=== PATIENT | female | born 1965 | race Two or more races ===

== ENCOUNTER 2020-10-10 11:02 | Emergency (ER) | payer OTHER, SELFPAY ==
[2020-10-10 11:29] VITALS: BP 173/98; PULSE 81; RESP 16; TEMP 36.6; O2SAT 98; BMI 31.1
--- NOTE | 2020-10-10 12:49 | XR_ITS ---
EXAMINATION: XR SHOULDER, LEFT CLINICAL INFORMATION: Pain. Status post injury COMPARISON: None TECHNIQUE: AP external rotation, Grashey, scapular Y, and axillary views of the left shoulder. FINDINGS: The bones and soft tissues are normal. No fracture. Glenohumeral and acromioclavicular alignment is anatomic with normal joint space. No abnormal soft tissue calcifications. XR/XR shoulder LT min 2V IMPRESSION: Unremarkable left shoulder
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
[2020-10-10] MEDS: Acetaminophen 325 MG TABLET 975 MG PO (13:33)
[2020-10-10] MEDS: Lidocaine 4 % Patch ADH..PATCH 1 PATCH TRANSDERMA (13:34)
== END 2020-10-10 14:09 | disposition home or self-care (01) ==
PROVIDERS: Emergency Provider Internal Medicine; PCP Internal Medicine
DX: G89.11 Acute pain due to trauma (principal); M25.512 Pain in left shoulder
CPT/HCPCS: 73030; 99283

== ENCOUNTER → 2020-11-04 09:47 | Outpatient (BNVA) | payer OTHER, SELFPAY | PROVIDERS: PCP Internal Medicine; Visit Provider Physician Assistant ==

== ENCOUNTER 2021-10-10 12:39 | Outpatient (REF) | payer OTHER, SELFPAY ==
[2021-10-11 15:50] LABS: CT PCR NOT DETECTED (Not Detect.); NG PCR NOT DETECTED (Not Detect.)
== END 2021-10-10 12:40 | disposition home or self-care (01) ==
LOC: HO.LAB 12:39
PROVIDERS: PCP Internal Medicine; Visit Provider Advanced Practice Midwife
DX: Z01.419 Encounter for gynecological examination (general) (routine) without abnormal findings (principal)
CPT/HCPCS: 87491; 87591

== ENCOUNTER 2021-10-23 09:57 | Outpatient (REF) | payer OTHER, SELFPAY ==
[2021-10-23 10:24] LABS: MANUAL DIFF FLAG NO
[2021-10-23 11:17] LABS: Basophils Percent Auto 0.5 % (0-2); Eosinophils Absolute Auto 0.1 X10*3/uL (0.0-0.4); Eosinophils Percent Auto 2.1 % (0-4); Hematocrit 41.6 % (37.0-47.0); Hemoglobin 12.9 g/dl (12.0-16.0); Imm Gran Abs Auto 0.01 X10*3/uL (0.00-0.03); Imm Gran Pct Auto 0.2 % (0.0-0.4); Lymphocytes Absolute Auto 1.5 X10*3/uL (1.2-4.9); Lymphocytes Percent Auto 23.4 % (20-40); Mean Corpuscular Hemoglobin 27.2 pg (27.0-33.0); Mean Corpuscular Volume 87.8 fL (80.0-98.0); Mean Platelet Volume 9.3 fL (9.4-12.3); Monocytes Absolute Auto 0.5 X10*3/uL (0.1-1.2); Monocytes Percent Auto 7.5 % (2-11); Neutrophils Absolute Auto 4.1 x10*3/uL (2.0-8.3); Neutrophils Percent Auto 66.3 % (45-73); Platelet Count 253 X10*3/uL (160-400); Red Blood Count 4.74 X10*6/uL (4.20-5.50); Red Cell Distribution Width 13.8 % (11.0-16.0); White Blood Count 6.2 X10*3/uL (4.8-10.8)
[2021-10-23 12:09] LABS: TSH reflex Free T4 (Prenatal) 2.39 uIU/mL (0.32-4.0)
[2021-10-23 12:18] LABS: Alanine Aminotransferase 16 U/L (0-31); Albumin Level 4.1 g/dL (3.5-5.0); Alkaline Phosphatase 108 U/L (39-117); Anion Gap 11 (12-20); Aspartate Amino Transferase 20 U/L (5-31); Bilirubin Total 0.5 mg/dL (0.0-1.0); Blood Urea Nitrogen 14 mg/dL (9-16); Calcium 9.7 mg/dL (8.4-10.2); Carbon Dioxide 27 mmol/L (22-29); Chloride 107 mmol/L (96-108); Cholesterol 211 mg/dL; Estimated Glomerular Filt Rate > 60; Glucose Fasting 103 mg/dL (60-99); HDL Cholesterol 53 mg/dL; LDL Cholesterol Calculated 139 mg/dl; Potassium 4.7 mmol/L (3.3-5.1); Sodium 140 mmol/L (135-145); Total Protein 7.6 g/dL (6.5-8.0); Triglycerides 98 mg/dL
[2021-10-28 13:11] LABS: Vitamin D 25-OH, D2 <4 ng/mL; Vitamin D 25-OH, D3 19 ng/mL; Vitamin D 25-OH, Total 19 ng/mL (30-100)
== END 2021-10-23 09:58 | disposition home or self-care (01) ==
LOC: HO.LAB 09:57
PROVIDERS: PCP Internal Medicine; Visit Provider Internal Medicine
DX: E66.9 Obesity, unspecified (principal); Z68.33 Body mass index [BMI] 33.0-33.9, adult; E55.9 Vitamin D deficiency, unspecified; E78.5 Hyperlipidemia, unspecified; D64.9 Anemia, unspecified
CPT/HCPCS: 36415; 80053; 80061; 82306; 85025

== ENCOUNTER 2022-04-27 10:57 | Emergency (ER) | payer OTHER, SELFPAY ==
[2022-04-27 12:00] VITALS: BP 124/79; PULSE 76; RESP 16; TEMP 36.2; O2SAT 98; BMI 33.0
--- NOTE | 2022-04-27 12:21 | ED.FEMALEGU ---
HPI - Female Genitourinary General Chief complaint: Urogenital-Female Stated complaint: abd pain Time Seen by Provider: 04/27/22 12:13 Source: patient Mode of arrival: ambulatory Limitations: no limitations History of Present Illness HPI Narrative: 56-year-old female with history HLD depression insomnia, who presents to the ER for evaluation of dysuria and hematuria yesterday. She reports suprapubic pain as well. She has no fever or chills. She denies any nausea, vomiting, diarrhea, back pain. She has never had a urinary tract infection before and does not know what when feels like. She denies any vaginal discharge. MD elicited complaint: dysuria Onset (ago): day(s) Location of symptoms: external genitalia and suprapubic Severity: moderate Female Urogenital Radiation: Suprapubic Severity scale (1-10): 6 Quality of pain: burning Consistency: intermittent Vaginal discharge: none Vaginal bleeding: none Urinary symptoms: Dysuria, Frequency and Hematuria Exacerbating factors: urination Associated symptoms: abdominal pain Treatment prior to arrival: none Sexual activity: Yes Patient : No Related Data Home Medications Medication Instructions Recorded Confirmed trazodone 50 mg tablet 50 mg PO BEDTIME 11/04/20 03/12/22 Previous Rx's Medication Instructions Recorded calcitriol 0.25 mcg capsule 0.25 mcg PO DAILY 90 days #90 caps 02/21/22 (Rocaltrol) rosuvastatin 40 mg tablet 40 mg PO DAILY 90 days #90 tabs 03/08/22 cefuroxime axetil 500 mg tablet 500 mg PO BID 7 days #14 tabs 04/27/22 phenazopyridine 100 mg tablet 100 mg PO TID PRN pain 6 doses #6 04/27/22 (Pyridium) tabs Allergies Allergy/AdvReac Type Severity Reaction Status Date / Time No Known Allergies Allergy Verified 03/12/22 16:37 [No Known Allergies*] Review of Systems Review of Systems: Constitutional: No Fever, No Chills Cardiovascular: No Chest Pain, No SOB Respiratory: No Cough, No Sputum Gastrointestinal: No Nausea, No Vomiting, No Diarrhea, + abdominal Pain Genitourinary: + Dysuria, + Urinary Frequency, + Hematuria Musculoskeletal: No joint pain, No Myalgias, No back pain Skin: No Skin Lesions, No rash Neuro: No Weakness, No Numbness, No Dizziness, No Headache Psych: + Anxiety/Panic, No Depression Heme/Lymph: No Bruising, No Lymphadenopathy Endocrine: No Polyuria, No Polydipsia PMFSH Past Medical History Medical History (Updated 04/27/22 @ 12:43 by BOUCHRA Cam[place]) Class 1 obesity with body mass index (BMI) of 33.0 to 33.9 in adult Dyslipidemia High cholesterol Hypovitaminosis D Insomnia Mild recurrent major depression Surgical History No pertinent past surgical history Family History Family History Mother Advanced dementia Essential hypertension Pure hypercholesterolemia Father Advanced dementia Social History Social History Household Members: Spouse Household Members Other:: son Housing: House Alcohol intake: never Patient Tobacco Use Status: Never used Tobacco e-Cigarette/Vaping Use: Never Used Second Hand Smoke Exposure: No Advance Directives: No Advance Directives Information Provided: Yes service: No Current occupational status: unemployed Sexual orientation: Straight/Heterosexual Gender identity: Female Cognitive needs: No Hearing needs: No Vision needs: No Physical Exam Vital Signs: Vital Signs: Last Vital Signs Temp 97.2 F 04/27/22 12:00 Pulse 76 04/27/22 12:00 Resp 16 04/27/22 12:00 BP 124/79 04/27/22 12:00 Pulse Ox 98 04/27/22 12:00 O2 Del Method 04/27/22 12:00 BMI result Body Mass Index 33.0 Appearance: Alert. Oriented X3. No acute distress. Eyes: Pupils equal, round and reactive to light. ENT: Pharynx normal. Neck: Normal inspection. Neck supple. CVS: Normal heart rate and rhythm. Pulses normal. Respiratory: No respiratory distress. Breath sounds normal. Abdomen: Soft with mild suprapubic tenderness. No rebound or guarding. Normal BS x4. No CVA tenderness. Pelvic deferred Skin: Skin warm and dry. Normal skin color. Normal skin turgor. No rashes. Extremities: No lower extremity edema. Neuro: Oriented X 3. No motor deficit. No sensory deficit. Course Course Course Narrative: 56-year-old female presenting to the ER with dysuria and hematuria that started yesterday. On arrival to the ER she is afebrile, vital signs are within normal limits. She has mild suprapubic tenderness on examination, otherwise is nontoxic appearing. No CVA tenderness. Her urine is positive for protein, blood, leukocyte esterase consistent with urinary tract infection. Will treat with Ceftin x7 days. Will also give short course of Pyridium for her symptoms. She was encourage follow-up with her primary care doctor. Encouraged increased oral intake and stay hydrated. We discussed warning signs and symptoms of ascending urinary tract infection that should prompt urgent re-evaluation. Patient expressed understanding. She is stable for discharge home. MDM - Female Genitourinary Lab Data Labs: Lab Results 04/27/22 04/27/22 Range/Units 12:17 12:17 Urine Color PINK Urine Appearance HAZY Urine pH 6.5 (5.0-8.0) Ur Specific [place] 1.020 (1.005-1.025) Urine Protein 2+ H (NEG-TRACE) MG/DL Urine Glucose (UA) NEG (NEG) MG/DL Urine Ketones NEG (NEG) MG/DL Urine Blood 3+ H (NEG) Urine Nitrite NEG (NEG) Ur Leukocyte Esterase 1+ H (NEG) Urine RBC TNTC H (0) /HPF Urine WBC 1-4 (0-4) /HPF Ur Squamous Epith Cells 1+ /LPF Urine Bacteria TRACE /LPF Urine Test NEGATIVE (NEGATIVE) Discharge Plan Discharge Clinical Impression: Acute UTI Patient Disposition: Home, Self-Care Instructions: Urinary Tract Infection in Women (ED) Additional Instructions: Your urine test today showed evidence of infection. Take the prescribed antibiotic as directed, complete the entire course. Drink plenty of water. Take prescribed medication called Pyridium as needed for bladder pain and spasm. This can cause your urine to turn an orange color, this is a normal side effect. If you have new or worsening symptoms despite treatment, call 911 or come back to the ER for further evaluation. Prescriptions: New cefuroxime axetil 500 mg tablet 500 mg PO BID 7 Days Qty: 14 0RF phenazopyridine [Pyridium] 100 mg tablet 100 mg PO TID PRN (Reason: pain) Qty: 6 0RF No Action calcitriol [Rocaltrol] 0.25 mcg capsule 0.25 mcg PO DAILY 90 Days Qty: 90 1RF rosuvastatin 40 mg tablet 40 mg PO DAILY 90 Days Qty: 90 1RF trazodone 50 mg tablet 50 mg PO BEDTIME Referrals: Emilia Mancini MD [Primary Care Provider] - Print Language: Frisian
[2022-04-27 12:27] LABS: Appearance Urine HAZY; Glucose Urine UA NEG (NEG); Leukocyte Esterase Urine 1+ (NEG); Nitrite Urine NEG (NEG); PH 6.5 (5.0-8.0); UACC Culture Trigger YES; Urine Blood 3+ (NEG); Urine Ketones NEG (NEG); Urine Protein 2+ MG/DL (NEG-TRACE)
[2022-04-27 12:28] LABS: Color Urine PINK; UPreg QC Valid YES; Urine Pregnancy NEGATIVE (NEGATIVE)
[2022-04-27 12:36] LABS: RBC Urine TNTC /HPF (0); Squamous Epithelial Cell Urine 1+ /LPF
[2022-04-27 12:38] LABS: Bacteria Urine TRACE /LPF
== END 2022-04-27 13:11 | disposition home or self-care (01) ==
PROVIDERS: Emergency Provider Student in an Organized Health Care Education/Training Program; PCP Internal Medicine
DX: N39.0 Urinary tract infection, site not specified (principal); B96.4 Proteus (mirabilis) (morganii) as the cause of diseases classified elsewhere
CPT/HCPCS: 81001; 81025; 87086; 87088; 87186; 99283

== ENCOUNTER 2022-06-28 09:12 | Outpatient (REF) | payer OTHER, SELFPAY ==
[2022-06-28 11:40] LABS: Alanine Aminotransferase 16 U/L (0-31); Albumin Level 4.1 g/dL (3.5-5.0); Alkaline Phosphatase 106 U/L (39-117); Anion Gap 15 (12-20); Aspartate Amino Transferase 18 U/L (5-31); Bilirubin Total < 0.2 mg/dL (0.0-1.0); Blood Urea Nitrogen 11 mg/dL (9-16); Carbon Dioxide 25 mmol/L (22-29); Chloride 107 mmol/L (96-108); Cholesterol 205 mg/dL; Estimated Glomerular Filt Rate > 60; Glucose Fasting 112 mg/dL (60-99); HDL Cholesterol 53 mg/dL; LDL Cholesterol Calculated 130 mg/dl; Potassium 4.5 mmol/L (3.3-5.1); Sodium 142 mmol/L (135-145); Total Protein 7.7 g/dL (6.5-8.0); Triglycerides 112 mg/dL
[2022-06-28 11:54] LABS: Vitamin D 25-OH Total 18.5 ng/mL (>30)
== END 2022-06-28 09:13 | disposition home or self-care (01) ==
LOC: HO.LAB 09:12
PROVIDERS: PCP Internal Medicine; Visit Provider Internal Medicine
DX: E55.9 Vitamin D deficiency, unspecified (principal); E78.5 Hyperlipidemia, unspecified
CPT/HCPCS: 36415; 80053; 80061; 82306

== ENCOUNTER 2023-01-02 13:55 | Emergency (ER) | payer OTHER, SELFPAY ==
[2023-01-02 13:58] VITALS: BP 126/99; PULSE 92; RESP 18; TEMP 36.9; O2SAT 95; BMI 28.3
--- NOTE | 2023-01-02 14:01 | ED.BACK ---
HPI - Back Pain/Injury General Chief Complaint: Back Pain/Injury <Yani Gonzalez NP - Last Filed: 01/02/23 14:02> Stated Complaint: back pain <Yani Gonzalez NP - Last Filed: 01/02/23 14:02> Time Seen by Provider: 01/02/23 15:05 <Yani Gonzalez NP - Last Filed: 01/02/23 14:02> History of Present Illness HPI Narrative: Patient complains of right-sided back pain radiating to the right foot similar to prior sciatica episodes, there was no provoking injury, pain is worse with movement, started today She denies any muscle weakness no loss of sensation no fever no IV drugs no change to bowel or bladder no pain with urination no frequent urination no burning, no incontinence <BOUCHRA Lozano - Last Filed: 01/02/23 17:43> Related Data Home Medications: Previous Rx's Medication Instructions Recorded cholecalciferol (vitamin D3) 50 50 mcg PO DAILY 90 days #90 caps 06/18/22 mcg (2,000 unit) capsule rosuvastatin 40 mg tablet 40 mg PO DAILY 90 days #90 tabs 06/22/22 diazepam 5 mg tablet (Valium) 5 mg PO TID PRN muscle spasm #10 01/02/23 tabs ibuprofen 600 mg tablet 600 mg PO Q6H PRN pain #20 tabs 01/02/23 oxycodone 5 mg tablet 5 mg PO Q6H PRN pain #14 tabs 01/02/23 <Yani Gonzalez NP - Last Filed: 01/02/23 14:02> Allergies/Adverse Reactions: Allergies Allergy/AdvReac Type Severity Reaction Status Date / Time No Known Allergies Allergy Verified 01/02/23 14:01 [No Known Allergies*] <Yani Gonzalez NP - Last Filed: 01/02/23 14:02> [facility] Past Medical History Source: nursing notes reviewed <BOUCHRA Lozano - Last Filed: 01/02/23 17:43> Medical History: Medical History Class 1 obesity with body mass index (BMI) of 33.0 to 33.9 in adult Dyslipidemia High cholesterol Hypovitaminosis D Insomnia Mild recurrent major depression <Yani Gonzalez NP - Last Filed: 01/02/23 14:02> Surgical History: Surgical History No pertinent past surgical history <Yani Gonzalez NP - Last Filed: 01/02/23 14:02> Family History Family History: Family History Mother Advanced dementia Essential hypertension Pure hypercholesterolemia Father Advanced dementia <Yani Gonzalez NP - Last Filed: 01/02/23 14:02> Social History Social History: Social History Household Members: Spouse Household Members Other:: son Housing: House Alcohol intake: never Patient Tobacco Use Status: Never used Tobacco Smoked in Last 30 Days: No e-Cigarette/Vaping Use: Never Used Second Hand Smoke Exposure: No Use of substances other than those prescribed or required for medical reasons: No Advance Directives: No Advance Directives Information Provided: Yes service: No Current occupational status: unemployed Sexual orientation: Straight/Heterosexual Gender identity: Female Cognitive needs: No Hearing needs: No Vision needs: No <Yani Gonzalez NP - Last Filed: 01/02/23 14:02> Physical Exam Vital Signs: Vital Signs: Last Vital Signs Temp 98.5 F 01/02/23 13:58 Pulse 92 01/02/23 13:58 Resp 01/02/23 13:58 BP 126/99 H 01/02/23 13:58 Pulse Ox 95 01/02/23 13:58 O2 Del Method Room Air 01/02/23 13:58 BMI result Body Mass Index 28.3 <Yani Gonzalez NP - Last Filed: 01/02/23 14:02> Vital Signs: Last Vital Signs Temp 98.5 F 01/02/23 13:58 Pulse 92 01/02/23 13:58 Resp 18 01/02/23 13:58 BP 126/99 H 01/02/23 13:58 Pulse Ox 95 01/02/23 13:58 O2 Del Method Room Air 01/02/23 13:58 BMI result Body Mass Index 28.3 <BOUCHRA Lozano - Last Filed: 01/02/23 17:43> General appearance is no acute distress The head is normocephalic atraumatic Neck is supple Respiratory no distress Chest wall nontender The abdomen is soft and nontender no rebound no guarding The back had right-sided lower lumbar tenderness and muscle spasm, [place] spinal soft tissue area There is no focal bony tenderness, skin of the back is normal there is no CVA tenderness and pain is easily reproduced with movement Extremities full range of motion x4 Neuro no focal motor sensory deficits <BOUCHRA Lozano - Last Filed: 01/02/23 17:43> Course Course Course Narrative: This is a rapid medical exam. Deferred additional HPI, ROS, PE to primary problem. 57 yo female with history of HLD, chronic back pain here with worsening back pain today at 11am with radiation to the abdomen. WIll obtain labs, UA. VSS <Yani Gonzalez NP - Last Filed: 01/02/23 14:02> This is a rapid medical exam. Deferred additional HPI, ROS, PE to primary problem. 57 yo female with history of HLD, chronic back pain here with worsening back pain today at 11am with radiation to the abdomen. WIll obtain labs, UA. Labs were ordered from triage, CBC and chemistry were without acute findings Urinalysis did show 11-20 squamous epithelial cells and 6-10 white cells with 2+ bacteria, but rechecking with patient this contaminated specimen is negative as patient does not have any symptoms of urinary tract infection and pain in the back is reproducible musculoskeletal back pain After analgesics patient felt much better was able to ambulate and felt pain was very improved and went home VSS <BOUCHRA Lozano - Last Filed: 01/02/23 17:43> Medications Administered Discontinued Medications Generic Name Dose Route Start Last Admin Trade Name Freq PRN Reason Stop Dose Admin Diazepam 5 mg 01/02/23 15:37 01/02/23 16:05 Diazepam 2 Mg Tablet PO 01/02/23 15:38 5 mg ONCE ONE Administration Ketorolac Tromethamine 30 mg 01/02/23 15:37 01/02/23 16:06 Ketorolac Tromethamine 30 Mg/Ml Vial IM 01/02/23 15:38 30 mg ONCE ONE Administration Oxycodone HCl 10 mg 01/02/23 15:37 01/02/23 16:05 Oxycodone Hcl Immed Release 5 Mg Tablet PO 01/02/23 15:38 10 mg ONCE ONE Administration <Yani Gonzalez NP - Last Filed: 01/02/23 14:02> Medications Administered Discontinued Medications Generic Name Dose Route Start Last Admin Trade Name Zeke PRN Reason Stop Dose Admin Diazepam 5 mg 01/02/23 15:37 01/02/23 16:05 Diazepam 2 Mg Tablet PO 01/02/23 15:38 5 mg ONCE ONE Administration Ketorolac Tromethamine 30 mg 01/02/23 15:37 01/02/23 16:06 Ketorolac Tromethamine 30 Mg/Ml Vial IM 01/02/23 15:38 30 mg ONCE ONE Administration Oxycodone HCl 10 mg 01/02/23 15:37 01/02/23 16:05 Oxycodone Hcl Immed Release 5 Mg Tablet PO 01/02/23 15:38 10 mg ONCE ONE Administration <BOUCHRA Lozano - Last Filed: 01/02/23 17:43> Medical Decision Making Lab Data Result Diagrams: 01/02/23 14:32 01/02/23 14:32 <Yani Gonzalez NP - Last Filed: 01/02/23 14:02> Labs: Lab Results 01/02/23 01/02/23 01/02/23 Range/Units 14:32 14:32 16:15 WBC 10.4 (4.8-10.8) X10*3/uL RBC 5.21 (4.20-5.50) X10*6/uL Hgb 14.0 (12.0-16.0) g/dl Hct 44.3 (37.0-47.0) % MCV 85.0 (80.0-98.0) fL MCH 26.9 L (27.0-33.0) pg MCHC 31.6 (31.0-35.0) g/dl RDW 14.6 (11.0-16.0) % Plt Count 271 (160-400) X10*3/uL MPV 9.2 L (9.4-12.3) fL Immature Gran % (Auto) 0.3 (0.0-0.4) % Neut % (Auto) 75.4 H (45-73) % Lymph % (Auto) 16.7 L (20-40) % [place] % (Auto) 6.4 (2-11) % Eos % (Auto) 0.9 (0-4) % Baso % (Auto) 0.3 (0-2) % Lymph # (Auto) 1.7 (1.2-4.9) X10*3/uL [place] # (Auto) 0.7 (0.1-1.2) X10*3/uL Eos # (Auto) 0.1 (0.0-0.4) X10*3/uL Baso # (Auto) 0.0 (0.0-0.2) X10*3/uL Abs Immat Gran (auto) 0.03 (0.00-0.03) X10*3/uL Absolute Neuts (auto) 7.8 (2.0-8.3) x10*3/uL Absolute Nucleated RBC 0.000 (0.0-0.012) X10*3/uL Nucleated RBC % (auto) 0.0 (0.0-0.2) /100WBC Sodium 141 (135-145) mmol/L Potassium 4.7 (3.3-5.1) mmol/L Chloride 104 (96-108) mmol/L Carbon Dioxide 29 (22-29) mmol/L Anion Gap 13 (12-20) BUN 12 (9-16) mg/dL Creatinine 0.86 (0.5-1.4) mg/dL Estim Creat Clear Calc 63.7 Estimated GFR > 60 Random Glucose 122 H (60-115) mg/dL Calcium 10.3 H D (8.4-10.2) mg/dL Total Bilirubin 0.3 (0.0-1.0) mg/dL Direct Bilirubin 0.1 (0.0-0.5) mg/dL AST 19 (5-31) U/L ALT 15 (0-31) U/L Alkaline Phosphatase 110 (39-117) U/L Total Protein 8.0 (6.5-8.0) g/dL Albumin 4.4 (3.5-5.0) g/dL Lipase 27 (8-78) U/L Urine Color Yellow Urine Appearance Cloudy Urine pH 5.5 (5.0-9.0) Ur Specific [place] 1.015 (1.005-1.025) Urine Protein Negative (Neg-Trace) mg/dL Urine Glucose (UA) Negative (Negative) mg/dL Urine Ketones Negative (Negative) mg/dL Urine Blood Negative (Negative) Urine Nitrite Negative (Negative) Ur Leukocyte Esterase Small (1+) H (Negative) Urine RBC 0-2 (0-2) /HPF Urine WBC 6-10 H (0-5) /HPF Ur Squamous Epith Cells 11-20 (0-2) /HPF Urine Bacteria 2+ (None Seen) Hyaline Casts 0-2 (0-2) /LPF <Yani Gonzalez COMPUTER[employer]ED [employer]ILL MILL RECORDER - Last Filed: 01/02/23 14:02> Lab Results 01/02/23 01/02/23 01/02/23 Range/Units 14:32 14:32 16:15 WBC 10.4 (4.8-10.8) X10*3/uL RBC 5.21 (4.20-5.50) X10*6/uL Hgb 14.0 (12.0-16.0) g/dl Hct 44.3 (37.0-47.0) % MCV 85.0 (80.0-98.0) fL MCH 26.9 L (27.0-33.0) pg MCHC 31.6 (31.0-35.0) g/dl RDW 14.6 (11.0-16.0) % Plt Count 271 (160-400) X10*3/uL MPV 9.2 L (9.4-12.3) fL Immature Gran % (Auto) 0.3 (0.0-0.4) % Neut % (Auto) 75.4 H (45-73) % Lymph % (Auto) 16.7 L (20-40) % [place] % (Auto) 6.4 (2-11) % Eos % (Auto) 0.9 (0-4) % Baso % (Auto) 0.3 (0-2) % Lymph # (Auto) 1.7 (1.2-4.9) X10*3/uL [place] # (Auto) 0.7 (0.1-1.2) X10*3/uL Eos # (Auto) 0.1 (0.0-0.4) X10*3/uL Baso # (Auto) 0.0 (0.0-0.2) X10*3/uL Abs Immat Gran (auto) 0.03 (0.00-0.03) X10*3/uL Absolute Neuts (auto) 7.8 (2.0-8.3) x10*3/uL Absolute Nucleated RBC 0.000 (0.0-0.012) X10*3/uL Nucleated RBC % (auto) 0.0 (0.0-0.2) /100WBC Sodium 141 (135-145) mmol/L Potassium 4.7 (3.3-5.1) mmol/L Chloride 104 (96-108) mmol/L Carbon Dioxide 29 (22-29) mmol/L Anion Gap 13 (12-20) BUN 12 (9-16) mg/dL Creatinine 0.86 (0.5-1.4) mg/dL Estim Creat Clear Calc 63.7 Estimated GFR > 60 Random Glucose 122 H (60-115) mg/dL Calcium 10.3 H D (8.4-10.2) mg/dL Total Bilirubin 0.3 (0.0-1.0) mg/dL Direct Bilirubin 0.1 (0.0-0.5) mg/dL AST 19 (5-31) U/L ALT 15 (0-31) U/L Alkaline Phosphatase 110 (39-117) U/L Total Protein 8.0 (6.5-8.0) g/dL Albumin 4.4 (3.5-5.0) g/dL Lipase 27 (8-78) U/L Urine Color Yellow Urine Appearance Cloudy Urine pH 5.5 (5.0-9.0) Ur Specific [place] 1.015 (1.005-1.025) Urine Protein Negative (Neg-Trace) mg/dL Urine Glucose (UA) Negative (Negative) mg/dL Urine Ketones Negative (Negative) mg/dL Urine Blood Negative (Negative) Urine Nitrite Negative (Negative) Ur Leukocyte Esterase Small (1+) H (Negative) Urine RBC 0-2 (0-2) /HPF Urine WBC 6-10 H (0-5) /HPF Ur Squamous Epith Cells 11-20 (0-2) /HPF Urine Bacteria 2+ (None Seen) Hyaline Casts 0-2 (0-2) /LPF <BOUCHRA Lozano - Last Filed: 01/02/23 17:43> Discharge Plan Discharge Clinical Impression: Back pain <Yani Gonzalez NP - Last Filed: 01/02/23 14:02> Patient Disposition: Home, Self-Care <Yani Gonzalez NP - Last Filed: 01/02/23 14:02> Additional Instructions: Most flares of sciatica and back pain resolve on their own Use pain medication as needed Return any time for weakness, severe pain fever incontinence any worse condition or any concerns Follow with primary doctor as needed <Yani Gonzalez NP - Last Filed: 01/02/23 14:02> Prescriptions: New oxycodone 5 mg tablet 5 mg PO Q6H PRN (Reason: pain) Qty: 14 0RF Rx Instructions: Partial Fill upon patient request. diazepam [Valium] 5 mg tablet 5 mg PO TID PRN (Reason: muscle spasm) Qty: 10 0RF ibuprofen 600 mg tablet 600 mg PO Q6H PRN (Reason: pain) Qty: 20 0RF No Action rosuvastatin 40 mg tablet 40 mg PO DAILY 90 Days Qty: 90 1RF cholecalciferol (vitamin D3) 50 mcg (2,000 unit) capsule 50 mcg PO DAILY 90 Days Qty: 90 1RF <Yani Gonzalez NP - Last Filed: 01/02/23 14:02>
[2023-01-02 14:35] LABS: MANUAL DIFF FLAG NO
[2023-01-02 14:36] LABS: Basophils Percent Auto 0.3 % (0-2); Eosinophils Absolute Auto 0.1 X10*3/uL (0.0-0.4); Eosinophils Percent Auto 0.9 % (0-4); Hematocrit 44.3 % (37.0-47.0); Imm Gran Abs Auto 0.03 X10*3/uL (0.00-0.03); Imm Gran Pct Auto 0.3 % (0.0-0.4); Lymphocytes Absolute Auto 1.7 X10*3/uL (1.2-4.9); Lymphocytes Percent Auto 16.7 % (20-40); Mean Corpuscular HGB Conc 31.6 g/dl (31.0-35.0); Mean Corpuscular Hemoglobin 26.9 pg (27.0-33.0); Mean Platelet Volume 9.2 fL (9.4-12.3); Monocytes Absolute Auto 0.7 X10*3/uL (0.1-1.2); Monocytes Percent Auto 6.4 % (2-11); Neutrophils Absolute Auto 7.8 x10*3/uL (2.0-8.3); Neutrophils Percent Auto 75.4 % (45-73); Platelet Count 271 X10*3/uL (160-400); Red Blood Count 5.21 X10*6/uL (4.20-5.50); Red Cell Distribution Width 14.6 % (11.0-16.0); White Blood Count 10.4 X10*3/uL (4.8-10.8)
[2023-01-02 14:53] LABS: Alanine Aminotransferase 15 U/L (0-31); Albumin Level 4.4 g/dL (3.5-5.0); Alkaline Phosphatase 110 U/L (39-117); Anion Gap 13 (12-20); Aspartate Amino Transferase 19 U/L (5-31); Bilirubin Direct 0.1 mg/dL (0.0-0.5); Bilirubin Total 0.3 mg/dL (0.0-1.0); Blood Urea Nitrogen 12 mg/dL (9-16); Calcium 10.3 mg/dL (8.4-10.2); Carbon Dioxide 29 mmol/L (22-29); Chloride 104 mmol/L (96-108); Creatinine Clr Calc Pharmacy 63.7; Estimated Glomerular Filt Rate > 60; Glucose Random 122 mg/dL (60-115); Lipase 27 U/L (8-78); Potassium 4.7 mmol/L (3.3-5.1); Sodium 141 mmol/L (135-145)
[2023-01-02] MEDS: oxyCODONE HCl Immed Release 5 MG TABLET 10 MG PO (16:05)
[2023-01-02] MEDS: diazePAM 2 MG TABLET 5 MG PO (16:05)
[2023-01-02] MEDS: Ketorolac Tromethamine 30 MG/ML VIAL IM (16:06)
[2023-01-02 16:47] LABS: Appearance Urine Cloudy; Color Urine Yellow; Glucose Urine UA Negative (Negative); Leukocyte Esterase Urine Small (1+) (Negative); Nitrite Urine Negative (Negative); PH 5.5 (5.0-9.0); Specific Gravity - Urine 1.015 (1.005-1.025); UMIC TRIGGER UACC YES; Urine Blood Negative (Negative); Urine Ketones Negative (Negative); Urine Protein Negative (Neg-Trace)
[2023-01-02 16:50] LABS: Bacteria Urine 2+ (None Seen); Hyaline Casts Urine 0-2 /LPF (0-2); RBC Urine 0-2 /HPF (0-2); UACC Culture Trigger YES
== END 2023-01-02 18:23 | disposition home or self-care (01) ==
PROVIDERS: Nurse Practitioner Family; Emergency Provider Internal Medicine; PCP Internal Medicine
DX: M54.50 Low back pain, unspecified (principal); M79.671 Pain in right foot; Z79.899 Other long term (current) drug therapy
CPT/HCPCS: 36415; 80048; 80076; 81001; 83690; 85025; 87086; 96372; 99284; J1885

== ENCOUNTER 2023-01-18 10:28 | Outpatient (REF) | payer OTHER, SELFPAY ==
--- NOTE | ~2023-01-18 | XR_ITS ---
EXAMINATION: XR FOOT, LEFT CLINICAL INFORMATION: Left foot pain COMPARISON: None available. TECHNIQUE: AP, lateral, and oblique views of the left foot. FINDINGS: The bones and soft tissues are normal. No fracture. Alignment is anatomic. Joint spaces are maintained. Calcaneal enthesopathy. XR/XR foot LT 2V IMPRESSION: Calcaneal enthesopathy.
--- NOTE | ~2023-01-18 | XR_ITS ---
EXAMINATION: XR HIP, RIGHT CLINICAL INFORMATION: Right hip pain COMPARISON: None available. TECHNIQUE: Two views of the right hip. FINDINGS: Bones and soft tissues are normal. No fracture. Alignment is anatomic. Hip joint space is maintained. XR/XR hip RT min 2V IMPRESSION: Normal right hip.
--- NOTE | ~2023-01-18 | XR_ITS ---
EXAMINATION: XR lumbar spine 2-3V CLINICAL INFORMATION: Reason for Exam M54.50 - Low back pain, unspecified COMPARISON: None TECHNIQUE: 3 views of the lumbar spine FINDINGS: 5 nonrib-bearing lumbar-type vertebral bodies. Vertebral body heights are maintained. Alignment is maintained. Disc space heights are maintained. Paravertebral soft tissues are unremarkable. XR/XR lumbar spine 2-3V IMPRESSION: No significant spondylosis of the lumbar spine, as above detailed.
== END 2023-01-18 10:29 | disposition home or self-care (01) ==
LOC: HO.XRAY 10:28
PROVIDERS: PCP Internal Medicine; Visit Provider Internal Medicine
DX: M79.672 Pain in left foot (principal); M25.551 Pain in right hip; M54.50 Low back pain, unspecified
CPT/HCPCS: 72100; 73502; 73620

== ENCOUNTER 2023-02-01 14:46 | Outpatient (REF) | payer OTHER, SELFPAY ==
[2023-02-07 09:23] LABS: HPV mRNA E6/E7 rflx Not Detected (Not Detected)
== END 2023-02-01 14:47 | disposition home or self-care (01) ==
LOC: HO.LNP 14:46
PROVIDERS: PCP Internal Medicine; Visit Provider Advanced Practice Midwife
DX: Z01.419 Encounter for gynecological examination (general) (routine) without abnormal findings (principal)
CPT/HCPCS: 87624; 88142

== ENCOUNTER 2023-03-14 13:47 | Outpatient (REF) | payer OTHER, SELFPAY ==
--- NOTE | ~2023-03-14 | MM_ITS ---
EXAMINATION: MM SCREENING DIGITAL BREAST TOMOSYNTHESIS, BILATERAL CLINICAL INFORMATION: Screening. Asymptomatic. The lifetime risk of breast cancer based on the Tyrer-Cuzick Model is 6.0%. COMPARISON: Mammography: This study is compared with the prior exam dating back to 2019. TECHNIQUE: Digital breast tomosynthesis is performed in both the craniocaudal and mediolateral oblique views along with computer-aided detection (CAD). Synthesized 2D images are generated from the tomosynthesis. FINDINGS: There are scattered areas of fibroglandular density (ACR BI-RADS breast composition Category b). There are no significant masses, abnormal calcifications, or other abnormalities. MM/MM tomosynthesis screening BI IMPRESSION: ASSESSMENT: BI-RADS BI-RADS 1 - Negative RECOMMENDATION: Routine annual mammography screening. 1 year F/U This patient's information was entered into a reminder system with a target due date for their next mammogram.
== END 2023-03-14 13:48 | disposition home or self-care (01) ==
LOC: HO.MAMMO 13:47
PROVIDERS: PCP Internal Medicine; Visit Provider Advanced Practice Midwife
DX: Z12.31 Encounter for screening mammogram for malignant neoplasm of breast (principal)
CPT/HCPCS: 77063; 77067

== ENCOUNTER → 2023-03-14 14:15 | Outpatient (BNV) | payer OTHER, SELFPAY | PROVIDERS: PCP Internal Medicine; Visit Provider Radiology Diagnostic Radiology | DX: Z12.31 Encounter for screening mammogram for malignant neoplasm of breast (principal) | CPT/HCPCS: 77063; 77067 ==

== ENCOUNTER 2023-07-02 08:07 | Outpatient (AMB) | payer OTHER, SELFPAY ==
[2023-07-02 08:25] VITALS: BP 138/88; BMI 31.6
--- NOTE | 2023-07-02 08:25 | A.OFFVIS_ITS ---
Intake Vital Signs 07/02/23 08:25 Height 5 ft 1 in Weight 167 lb BMI 31.6 BP 138/88 Intake Visit Reasons: Vaginal itch Intake Note: Breast rash The patient agreed to use of a biomedical service engineer during this encounter. Scribed for FARHAN De La Torre by Janie Hendrix, biomedical service engineer, on 07/02/2023 at 8:46 am EST. Ic Designer Gate Arrays Required: Yes Ic Designer Gate Arrays Language: Log Chain Worker Name: Nathaly Information Interpreted: non-clinical & clinical Round Corner Cutter Operator: Round Corner Cutter Operator Present (Nathaly) Allergies No Known Allergies [No Known Allergies*] Allergy (Verified 07/02/23 08:34) HPI HPI Comments History of Present Illness Details She is here with complains of an itchy, painful rash under the right breast noted over the last week. Using Nystatin cream that she had for a groin rash Rx by her PCP. Denies any new lotions or bra.History of a skin mole under her right breast for a long time now. [facility] Medical History (Updated 07/02/23 @ 09:49 by Janie Hendrix) Fleshy skin mole Skin rash Hypovitaminosis D Mild recurrent major depression Class 1 obesity with body mass index (BMI) of 33.0 to 33.9 in adult Insomnia Dyslipidemia High cholesterol Surgical History No pertinent past surgical history Family History Mother Advanced dementia Essential hypertension Pure hypercholesterolemia Father Advanced dementia Social History Household Members: Spouse Household Members Other:: son Housing: House Alcohol intake: never Patient Tobacco Use Status: Never used Tobacco e-Cigarette/Vaping Use: Never Used Second Hand Smoke Exposure: No service: No Current occupational status: unemployed Sexual orientation: Straight/Heterosexual Gender identity: Female Cognitive needs: No Hearing needs: No Vision needs: No Female Reproductive History Menstrual Age of Menarche: 14 Physical Exam Vital Signs: Last Vital Signs BP 138/88 07/02/23 08:25 BMI result Body Mass Index 31.6 Const General: cooperative, healthy appearing, comfortable, no acute distress, well developed, alert and awake Chest Other: Right breast inner aspect along bra line, there is a fleshy mole around the area. About 1 centimeter on each of side of the mole is slight edema and erythema. Chest palpation & inspection: normal inspection of the chest Breast/axilla inspection: normal inspection of the breasts and Other (no puckering, dimpling, peau de orange, retraction, discharge, masses) Breast/axilla palpation: normal palpation of the breasts Assessment & Plan Assessment & Plan (1) Skin rash: Code(s): R21 - Rash and other nonspecific skin eruption Plan: Discussed: Encouraged to not wear a bra that does not rubs area, use a sports bra, may apply a cool compress to the area, and do not scratch or rub the area. Advised to stop using previous Rx on area. Rx sent to pharmacy; instructions given. Recheck in one week. All of her questions and concerns were addressed to the best of my ability and shared decision making. She is agreeable to plan of care. (2) Fleshy skin mole: Comment: under right breast Code(s): D22.9 - Melanocytic nevi, unspecified Medications: New clotrimazole-betamethasone 1-0.05 % apply externally a thin coat to the area 1 appl topical BID 45 grams 0RF itching 7 days Coding Level of Care Code Est Pt Level 3 (42945) Diagnoses Skin rash R21 Fleshy skin mole D22.9
== END 2023-07-02 10:12 | disposition home or self-care (01) ==
PROVIDERS: PCP Internal Medicine; Visit Provider Advanced Practice Midwife
DX: R21 Rash and other nonspecific skin eruption (principal); D22.9 Melanocytic nevi, unspecified
CPT/HCPCS: 99213

== ENCOUNTER → 2023-07-02 08:07 | Outpatient (BNVA) | payer OTHER, SELFPAY | PROVIDERS: PCP Internal Medicine; Visit Provider Advanced Practice Midwife ==

== ENCOUNTER 2023-07-10 12:15 | Outpatient (AMB) | payer OTHER, SELFPAY ==
--- NOTE | 2023-07-10 12:43 | MHC.OFFVIS ---
Intake Vital Signs 07/10/23 12:44 Height 5 ft 1 in Weight 167 lb BMI 31.6 BP 126/84 Intake Visit Reasons: Recheck breast per Karin Patel Intake Note: The patient agreed to use of a medical transcription radiology during this encounter. Scribed for FARHAN De La Torre by Ijeoma Burton medical transcription radiology, on 07/10/2023 at 12:53 pm, EST. Music Library Assistant Required: Yes Music Library Assistant Language: Production Planner Scheduler Name: Nathaly DOTSON Information Interpreted: non-clinical & clinical Volunteer Services Manager: Volunteer Services Manager Present (Nathaly Patterson MAURI) Allergies No Known Allergies [No Known Allergies*] Allergy (Verified 07/10/23 12:43) HPI HPI Comments History of Present Illness Details The patient presents for her 1 week follow up of a skin check due to prior visit with yeast and irritated skin mole on the right breast. She was started on clotrimazole-betamethasone 1-0.05% topical BID 45 grams ORF itching, on 07/02/2023. Confirms completion of her medication. Reports itching stopped after 3 days and the rash has resolved. She has no complaints. [facility] Medical History Fleshy skin mole Skin rash Hypovitaminosis D Mild recurrent major depression Class 1 obesity with body mass index (BMI) of 33.0 to 33.9 in adult Insomnia Dyslipidemia High cholesterol Surgical History No pertinent past surgical history Family History Mother Advanced dementia Essential hypertension Pure hypercholesterolemia Father Advanced dementia Social History Household Members: Spouse Household Members Other:: son Housing: House Alcohol intake: never Patient Tobacco Use Status: Never used Tobacco e-Cigarette/Vaping Use: Never Used Second Hand Smoke Exposure: No service: No Current occupational status: unemployed Sexual orientation: Straight/Heterosexual Gender identity: Female Cognitive needs: No Hearing needs: No Vision needs: No Female Reproductive History Menstrual Age of Menarche: 14 Review of Systems Const All systems reviewed & are unremarkable except as noted in HPI and below Physical Exam Vital Signs: Last Vital Signs BP 126/84 07/10/23 12:44 BMI result Body Mass Index 31.6 Const General: cooperative, healthy appearing and no acute distress Chest Breast/axilla inspection: normal inspection of the breasts, normal inspection of the axillae and Other (brown mole on the medial aspect of the right breast) Skin General skin exam: no rashes or lesions noted (as noted.) Assessment & Plan Assessment & Plan (1) Fleshy skin mole: Comment: under right breast Code(s): D22.9 - Melanocytic nevi, unspecified Plan: I discussed with the patient that if the mole gets irritated under the bra line I can place a referral to the interpreter translator, she would like to defer at this time. She will contact the office should she wish to move forward with the referral. Coding Level of Care Code Est Pt Level 3 (16628) Diagnoses Fleshy skin mole D22.9
[2023-07-10 12:44] VITALS: BP 126/84; BMI 31.6
== END 2023-07-10 12:58 | disposition home or self-care (01) ==
PROVIDERS: PCP Internal Medicine; Visit Provider Advanced Practice Midwife
DX: D22.9 Melanocytic nevi, unspecified (principal)
CPT/HCPCS: 99213

== ENCOUNTER → 2023-07-10 12:15 | Outpatient (BNVA) | payer OTHER, SELFPAY | PROVIDERS: PCP Internal Medicine; Visit Provider Advanced Practice Midwife ==

== ENCOUNTER 2023-07-30 16:52 | Outpatient (AMB) | payer OTHER, SELFPAY ==
[2023-07-30 16:59] VITALS: BP 138/90; BMI 31.6
--- NOTE | 2023-07-30 16:59 | MHC.PC.OV ---
Vital Signs 07/30/23 16:59 Height 5 ft 1 in Weight 167 lb BMI 31.6 BP 138/90 H Blood Pressure Location Lt brachial Position Sitting Intake Visit Reasons: bp,lipids Intake Note: patient here for a follow up bp, lipids Hazardous Waste Material Technician Required: No Accompanied by: Son Allergies No Known Allergies [No Known Allergies*] Allergy (Verified 07/30/23 17:12) Medication List - Last Reconciled 07/30/23 by Emilia Knight MD simvastatin 40 mg PO BEDTIME 90 days Tobacco use date assessed: 01/15/23 Dental Screening Dental Screen Date: 07/30/23 Did you have a dental visit in the last 12 months?: No Did you have a dental problem in the last 6 months where you did not have access to dental care?: No Was dental information given to patient?: Patient has dentist HPI HPI Comments History of Present Illness Details This is a 57-year-old female with dyslipidemia, mild major depression and hypertension that comes today complaining of new daily persistent headaches that has been present for over 2 weeks. No neurological deficit associated with it. Lipid panel will be order for the next office visit. Depression has been in remission. Blood pressure elevated associated with headaches and I will start her on hydrochlorothiazide. Blood pressure goal is equal or less than 130/80. Blood pressure at home ranges 150/90. No chest pain or shortness of breath. Accompanied by son. [facility] Medical History (Updated 07/30/23 @ 17:18 by Emilia Knight MD) Fleshy skin mole Skin rash Hypovitaminosis D Mild recurrent major depression Class 1 obesity with body mass index (BMI) of 33.0 to 33.9 in adult Insomnia Dyslipidemia High cholesterol Surgical History No pertinent past surgical history Family History Mother Advanced dementia Essential hypertension Pure hypercholesterolemia Father Advanced dementia Social History Household Members: Spouse Household Members Other:: son Housing: House Alcohol intake: never Patient Tobacco Use Status: Never used Tobacco e-Cigarette/Vaping Use: Never Used Second Hand Smoke Exposure: No service: No Current occupational status: unemployed Sexual orientation: Straight/Heterosexual Gender identity: Female Cognitive needs: No Hearing needs: No Vision needs: No Female Reproductive History Menstrual Age of Menarche: 14 Questionnaire Thrive Questionnaire Date Thrive assessed: 01/15/23 ALHAJI-7 AMB Questionnaire ALHAJI-7 Date ALHAJI - 7 assessed: 01/15/23 Source: Developed by Drs. Dilip Farley, Eva Solares, Soham Coombs and colleagues, with an educational robyn from [employer]. Review of Systems Const All systems reviewed & are unremarkable except as noted in HPI and below Reports headache(s) Eyes Reports no additional complaints, Denies change in vision and Denies other visual disturbances ENT Reports headache(s) Card Denies chest pain at rest, Denies chest pain with activity, Denies edema, Denies irregular heart rhythm, Denies claudication, Denies dyspnea, Denies dyspnea on exertion, Denies orthopnea, Denies paroxysmal nocturnal dyspnea and Denies slow heart rate Resp Denies cough, Denies dyspnea and Denies dyspnea on exertion GI Denies abdominal pain, Denies change in bowel habits, Denies excessive flatus, Denies nausea and Denies vomiting Denies urinary incontinence, Denies urinary hesitancy and Denies urinary urgency Musc Denies abnormal gait, Denies atrophy, Denies deformity and Denies limited range of motion Skin/Breast Denies bleeding lesions, Denies changing lesions and Denies rash Neuro Denies abnormal gait, Reports headache(s) and Denies lack of coordination Physical exam (Primary Care) Vital Signs: Last Vital Signs BP 138/90 H 07/30/23 16:59 BMI result Body Mass Index 31.6 Tobacco/Smoking Status: Tobacco use Status Tobacco use date assessed 01/15/23 07/30/23 17:03 Patient Tobacco Use Status Never used Tobacco 07/30/23 17:03 e-Cigarette/Vaping Use Never Used 07/30/23 17:03 Thrive Assessment: Date of Thrive Assessment Date Thrive assessed 01/15/23 07/30/23 17:03 Eyes General: appearance normal, both eyes and all related structures Eyelids: Yes eyelids normal Conjunctivae: conjunctivae normal Neck Neck: Yes normal visual inspection and Yes supple Resp Effort & Inspection: normal respiratory effort Auscultation: clear to auscultation bilaterally Cardio Jugular venous distension: no JVD Rate: regular rate Rhythm: regular rhythm Heart sounds: S1 normal heart sound present and S2 normal heart sound present Extrem General: Yes full ROM Office Procedures Flu Questionnaire Does the patient have a severe egg allergy?: No Immunizations flu vacc [id number] 6mos up(PF) 60 mcg(15 mcgx4)/0.5 mL IM syringe Performing Provider: Emilia Knight MD [facility] Documented (not given) by: Elmo Yu Ricky on 07/30/23 17:03 Reason Not Given: Patient Refused Assessment and Plan Assessment & Plan (1) Essential hypertension: Code(s): I10 - Essential (primary) hypertension Plan: Start hydrochlorothiazide. Blood pressure goal is equal or less than 130/80. (2) New daily persistent headache: Code(s): G44.52 - New daily persistent headache (NDPH) Plan: MRI order. (3) Dyslipidemia: Code(s): E78.5 - Hyperlipidemia, unspecified Plan: Continue statins. (4) Mild recurrent major depression: Code(s): F33.0 - Major depressive disorder, recurrent, mild Plan: In remission. Orders: Orders Influenza [id number] Immunization Today Z23 - Encounter for immunization MR head/brain wo con Today G44.52 - New daily persistent headache (NDPH) Comprehensive [place]. Panel Fast 5 Months M77.8 - Other enthesopathies, not elsewhere classified Lipid Panel 5 Months E78.5 - Hyperlipidemia, unspecified Medications: New hydrochlorothiazide 12.5 mg PO DAILY 90 tabs 1RF 90 days I10 - Essential (primary) hypertension Coding Level of Care Code Est Pt Level 4 (41240) Diagnoses Essential hypertension I10 New daily persistent headache G44.52 Dyslipidemia E78.5 Mild recurrent major depression F33.0 Time Spent (min) 22
== END 2023-07-30 17:21 | disposition home or self-care (01) ==
PROVIDERS: PCP Internal Medicine; Visit Provider Internal Medicine
DX: I10 Essential (primary) hypertension (principal); G44.52 New daily persistent headache (NDPH); E78.5 Hyperlipidemia, unspecified; F33.0 Major depressive disorder, recurrent, mild
CPT/HCPCS: 99214

== ENCOUNTER 2023-10-29 16:57 | Outpatient (REF) | payer OTHER, SELFPAY ==
--- NOTE | ~2023-10-29 | MR_ITS ---
EXAMINATION: MR BRAIN WITHOUT CONTRAST CLINICAL INFORMATION: Daily persistent headache. COMPARISON: CT head from 03/18/2020. TECHNIQUE: MRI of the brain was obtained using routine sequences without contrast. FINDINGS: No focal restricted diffusion is demonstrated to suggest acute or subacute cerebral ischemia. No evidence of acute or chronic hemorrhagic products on heme-sensitive imaging. Scattered periventricular and deep white matter T2 FLAIR hyperintensities consistent with mild underlying microangiopathy. The ventricles are normal in morphology and size. No abnormal mass effect. No midline shift. Normal appearance of the pituitary gland. Normal positioning of the cerebellar tonsils. Normal arterial and venous vascular flow voids are present. Normal, homogeneous marrow signal. Mild mucosal thickening of the paranasal sinuses. No signal abnormalities within the mastoids. MR/MR head/brain wo con IMPRESSION: 1. No acute intracranial abnormalities. 2. Mild underlying microangiopathy.
== END 2023-10-29 16:58 | disposition home or self-care (01) ==
LOC: HO.MRI 16:57
PROVIDERS: PCP Internal Medicine; Visit Provider Internal Medicine
DX: G44.52 New daily persistent headache (NDPH) (principal)
CPT/HCPCS: 70551

== ENCOUNTER 2024-01-22 09:00 | Outpatient (REF) | payer OTHER, SELFPAY ==
[2024-01-22 10:29] LABS: Alanine Aminotransferase 13 U/L (0-31); Albumin Level 3.8 g/dL (3.5-5.0); Alkaline Phosphatase 95 U/L (39-117); Anion Gap 14 (12-20); Aspartate Amino Transferase 17 U/L (5-31); Bilirubin Total 0.3 mg/dL (0.0-1.0); Blood Urea Nitrogen 16 mg/dL (9-16); Calcium 9.7 mg/dL (8.4-10.2); Carbon Dioxide 24 mmol/L (22-29); Chloride 109 mmol/L (96-108); Cholesterol 227 mg/dL (<200); Estimated Glomerular Filt Rate > 60; Glucose Fasting 108 mg/dL (60-99); HDL Cholesterol 54 mg/dL (>40); LDL Cholesterol Calculated 158 mg/dL (<100); Potassium 4.4 mmol/L (3.3-5.1); Sodium 143 mmol/L (135-145); Total Protein 7.7 g/dL (6.5-8.0); Triglycerides 77 mg/dL (<150)
== END 2024-01-22 09:01 | disposition home or self-care (01) ==
LOC: HO.LAB 09:00
PROVIDERS: Visit Provider Internal Medicine
DX: M77.8 Other enthesopathies, not elsewhere classified (principal); E78.5 Hyperlipidemia, unspecified
CPT/HCPCS: 36415; 80053; 80061

== ENCOUNTER 2024-01-30 15:59 | Outpatient (AMB) | payer OTHER, SELFPAY ==
--- NOTE | 2024-01-30 16:01 | MHC.PC.OV ---
Vital Signs 01/30/24 16:02 Height 5 ft 1 in Weight 163 lb BMI 30.8 BP 130/82 Blood Pressure Location Lt brachial Position Sitting Intake Visit Reasons: physical exam Intake Note: Patient here for a physical exam Tomahawk Weapon System Operator Required: No Accompanied by: Self / Same As Patient Allergies No Known Allergies [No Known Allergies*] Allergy (Verified 01/30/24 16:26) Medication List - Last Reconciled 01/30/24 by Emilia Knight MD hydrochlorothiazide 12.5 mg PO DAILY 90 days simvastatin 40 mg PO BEDTIME 90 days Tobacco use date assessed: 01/30/24 Dental Screening Dental Screen Date: 01/30/24 Did you have a dental visit in the last 12 months?: Yes Did you have a dental problem in the last 6 months where you did not have access to dental care?: No Was dental information given to patient?: Patient has dentist HPI HPI Comments History of Present Illness Details This is a 58-year-old female with mild recurrent major depression in remission that comes accompanied by for her physical exam. Last mammogram was January 2023. Last Pap smear was 2022. Last colonoscopy was 2014 at [facility] and he was normal. Next colonoscopy should be 2024. Labs were discussed and she has elevated cholesterol and simvastatin will be increased. Has impaired glucose tolerance but denies any polyuria, polydipsia or unintentional weight loss. No chest pain or shortness of breath. [facility] Medical History Fleshy skin mole Skin rash Hypovitaminosis D Mild recurrent major depression Class 1 obesity with body mass index (BMI) of 33.0 to 33.9 in adult Insomnia Dyslipidemia High cholesterol Surgical History No pertinent past surgical history Family History Mother Advanced dementia Essential hypertension Pure hypercholesterolemia Father Advanced dementia Social History Household Members: Spouse Household Members Other:: son Housing: House Alcohol intake: never Patient Tobacco Use Status: Never used Tobacco e-Cigarette/Vaping Use: Never Used Second Hand Smoke Exposure: No service: No Current occupational status: unemployed Sexual orientation: Straight/Heterosexual Gender identity: Female Cognitive needs: No Hearing needs: No Vision needs: No Female Reproductive History Menstrual Age of Menarche: 14 Questionnaire PHQ-9 Over the last 2 weeks, how often have you been bothered by any of the following problems? 1. Little interest or pleasure in doing things: not at all 2. Feeling down, depressed, or hopeless: not at all 3. Trouble falling or staying asleep, or sleeping too much: not at all 4. Feeling tired or having little energy: not at all 5. Poor appetite or overeating: not at all 6. Feeling bad about yourself - or that you are a failure or have let yourself or your family down: not at all 7. Trouble concentrating on things, such as reading the newspaper or watching television: not at all 8. Moving or speaking so slowly that other people could have noticed. Or the opposite - being so fidgety or restless that you have been moving around a lot more than usual: not at all 9. Thoughts that you would be better off or of hurting yourself in some way: not at all Total score: 0 Depression Screening Interpretation: Negative Depression Screening Done: Yes 90234 - PHQ-9 Billing: Yes Source: Developed by Drs. Dilip Farley, Eva Solares, Soham Coombs and colleagues, with an educational robyn from [employer]. Thrive Questionnaire Date Thrive assessed: 01/30/24 I am a: Patient What is your living situation today?: I have a steady place to live Within the past 12 months, did the food you bought not last and you didn't have the money to get more?: Never true Within the past 12 months, did you worry whether your food would run out before you got money to buy more?: Never true Do you have trouble paying for medicines?: No Do you have trouble getting transportation to medical appointments?: No Do you have trouble paying your heating and electricity bill?: No Do you have trouble taking care of your child, family member or friend?: No Do you have trouble with day-to-day activities such as bathing, preparing meals, shopping, managing finances, etc.?: No Are you currently unemployed and looking for a job?: No Are you interested in more education?: No Please select the resources that you would like help with: None Currently or been in a relationship where the following occur: no concerns reported THRIVE Score: 0 AUDIT C Alcohol Use Questionnaire (AUDIT-C) 1. How often do you have a drink containing alcohol?: Never Total Score: 0 Score Reviewed/Action Taken: No ALHAJI-7 AMB Questionnaire ALHAJI-7 Date LAHAJI - 7 assessed: 01/30/24 Feeling nervous, anxious, or on edge: 1 = Several days Not being able to stop or control worryin = Not at all Worrying too much about different things: 1 = Several days Trouble relaxin = Several days Being so restless that it is hard to sit still: 0 = Not at all Becoming easily annoyed or irritable: 1 = Several days Feeling afraid as if something awful might happen: 1 = Several days Total ALHAJI-7 score (0-4 normal; 5-9 mild; 10-14 moderate; 15-21 severe): 5 Source: Developed by Drs. Dilip Farley, Eva Solares, Soham Coombs and colleagues, with an educational robyn from [employer]. ALHAJI-7 Assessment Billing ALHAJI-7 Assessment Tool: ALHAJI-7 Assessment 67366 Review of Systems Const All systems reviewed & are unremarkable except as noted in HPI and below Eyes Reports no additional complaints, Denies change in vision and Denies other visual disturbances Card Denies chest pain at rest, Denies chest pain with activity, Denies edema, Denies irregular heart rhythm, Denies claudication, Denies dyspnea, Denies dyspnea on exertion, Denies orthopnea, Denies paroxysmal nocturnal dyspnea and Denies slow heart rate Resp Denies cough, Denies dyspnea and Denies dyspnea on exertion GI Denies abdominal pain, Denies change in bowel habits, Denies excessive flatus, Denies nausea and Denies vomiting Denies urinary incontinence, Denies urinary hesitancy and Denies urinary urgency Physical exam (Primary Care) Vital Signs: Last Vital Signs BP 130/82 01/30/24 16:02 BMI result Body Mass Index 30.8 Tobacco/Smoking Status: Tobacco use Status Tobacco use date assessed 01/30/24 01/30/24 16:05 Patient Tobacco Use Status Never used Tobacco 01/30/24 16:05 e-Cigarette/Vaping Use Never Used 01/30/24 16:05 PHQ-9: PHQ-9 Score PHQ-9: Total score 0 01/30/24 16:27 Depression Screening Interpretation: Negative Thrive Assessment: Date of Thrive Assessment Date Thrive assessed 01/30/24 01/30/24 16:05 Currently or been in a relationship where the following occur: no concerns reported Const Orientation/consciousness: patient oriented x3 HENMT Head: Yes normal to inspection, Yes normocephalic and Yes atraumatic Ears: external ears normal Eyes General: appearance normal, both eyes and all related structures Eyelids: Yes eyelids normal Conjunctivae: conjunctivae normal Neck Neck: Yes normal visual inspection and Yes supple Resp Effort & Inspection: normal respiratory effort Auscultation: clear to auscultation bilaterally Cardio Jugular venous distension: no JVD Rate: regular rate Rhythm: regular rhythm Heart sounds: S1 normal heart sound present and S2 normal heart sound present GI Inspection: Yes normal to inspection Palpation (GI): Soft to palpation and nontender Auscultation: normal bowel sounds Skin General skin exam: no rashes or lesions noted Neuro General: patient oriented x3 and no focal motor deficits Extrem General: Yes full ROM Psych Appearance: grossly normal Assessment and Plan Assessment & Plan (1) Physical exam: Code(s): Z00.00 - Encounter for general adult medical examination without abnormal findings Plan: Repeat in a year. (2) Mild recurrent major depression: Code(s): F33.0 - Major depressive disorder, recurrent, mild Plan: In remission. Orders: Orders MM screening mammo BI Today Z12.31 - Encounter for screening mammogram for malignant neoplasm of breast Comprehensive [place]. Panel Fast 6 Months Z00.00 - Encounter for general adult medical examination without abnormal findings Vitamin D 25-OH Total 6 Months E55.9 - Vitamin D deficiency, unspecified Lipid Panel 6 Months E78.5 - Hyperlipidemia, unspecified, Z00.00 - Encounter for general adult medical examination without abnormal findings Medications: New simvastatin 80 mg PO BEDTIME 90 tabs 1RF 90 days Discontinued simvastatin Discontinued Reason: Patient Completed Course 40 mg PO BEDTIME 90 days 90 tabs 0RF Coding Level of Care Code Est Pt Prev Care 40-64y(58463) Diagnoses Physical exam Z00.00 Mild recurrent major depression F33.0 Additional Codes ALHAJI-7 Assessment Billing - ALHAJI-7 Assessment Tool: ALHAJI-7 Assessment 22223 ([id number]) Time Spent (min) 32
[2024-01-30 16:02] VITALS: BP 130/82; BMI 30.8
== END 2024-01-30 16:40 | disposition home or self-care (01) ==
PROVIDERS: PCP Internal Medicine; Visit Provider Internal Medicine
DX: Z00.00 Encounter for general adult medical examination without abnormal findings (principal); F33.0 Major depressive disorder, recurrent, mild
CPT/HCPCS: 99213; 99396

== ENCOUNTER 2024-04-06 13:57 | Outpatient (REF) | payer OTHER, SELFPAY | END 2024-04-06 13:58 | disposition home or self-care (01) | LOC: HO.MAMMO 13:57 | PROVIDERS: PCP Internal Medicine; Visit Provider Internal Medicine | DX: Z12.31 Encounter for screening mammogram for malignant neoplasm of breast (principal) | CPT/HCPCS: 77063; 77067 ==

== ENCOUNTER → 2024-04-06 14:30 | Outpatient (BNV) | payer OTHER, SELFPAY | PROVIDERS: PCP Internal Medicine; Visit Provider Radiology Diagnostic Radiology | DX: Z12.31 Encounter for screening mammogram for malignant neoplasm of breast (principal) | CPT/HCPCS: 77063; 77067 ==

== ENCOUNTER 2024-06-03 12:47 | Outpatient (AMB) | payer OTHER, SELFPAY ==
--- NOTE | 2024-06-03 12:51 | A.OFFVIS_ITS ---
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 Hot Dimpling Machine Operator Required: Yes Hot Dimpling Machine Operator Language: Datawarehouse Developer Services: Hot Dimpling Machine Operator Present (in person) Hot Dimpling Machine Operator Name: Nathaly DOTSON Information Interpreted: non-clinical & clinical Food Production Machine Operator: Food Production Machine Operator Present (Nathaly DOTSON) Accompanied by: Self / Same As Patient Allergies No Known Allergies [No Known Allergies*] Allergy (Verified 06/03/24 12:57) Post menopausal: Yes HPI Comments Details: 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 She is doing well with no concerns: skin spots and moles growing. Attempting to eat a healthy diet, and stays active with exercise. Has calcium deposits, avoids extra calcium. Currently sexually active. Denies any vaginal dryness or irritation. STI testing offered; she declined. Last pap smear; 2022, negative. Last mammogram; 2023. Colonoscopy is UTD. Denies any family history of breast, ovarian or colon cancer. [facility] Medical History Fleshy skin mole Skin rash Hypovitaminosis D Mild recurrent major depression Class 1 obesity with body mass index (BMI) of 33.0 to 33.9 in adult Insomnia Dyslipidemia High cholesterol Surgical History No pertinent past surgical history Family History Mother Advanced dementia Essential hypertension Pure hypercholesterolemia Father Advanced dementia Social History Household Members: Spouse Household Members Other:: son Housing: House Alcohol intake: never Patient Tobacco Use Status: Never used Tobacco e-Cigarette/Vaping Use: Never Used Second Hand Smoke Exposure: No service: No Current occupational status: unemployed Sexual orientation: Straight/Heterosexual Gender identity: Female Cognitive needs: No Hearing needs: No Vision needs: No Female Reproductive History Menstrual Age of Menarche: 14 Menopause type: natural Total pregnancies: 1 Full term: 1 Number of Living Children: 1 Date of last pap smear: 02/05/23 Date of Mammogram: 04/06/24 Review of Systems Const All systems reviewed & are unremarkable except as noted in HPI and below Reports as per HPI Eyes Reports no additional complaints ENT Reports no additional complaints Card Reports no additional complaints Resp Reports no additional complaints GI Reports as per HPI and Reports no additional complaints Reports as per HPI Musc Reports no additional complaints Skin/Breast Reports as per HPI Neuro Reports no additional complaints Psych Reports no additional complaints Endo Reports no additional complaints Manas/Lymph Reports no additional complaints Aller/Immun Reports no additional complaints Physical Exam Vital Signs: Last Vital Signs BP 130/82 06/03/24 12:52 BMI result Body Mass Index 30.6 Const General: cooperative, healthy appearing, no acute distress, well developed and alert Orientation/consciousness: patient oriented x3 HEENT Head: Yes normal to inspection Eyes General: appearance normal, both eyes and all related structures Neck Neck: Yes normal visual inspection Thyroid: Thyroid normal Chest Chest palpation & inspection: normal inspection of the chest and other (no puckering, dimpling, peau de orange, retraction, discharge, masses) Breast/axilla inspection: normal inspection of the breasts Breast/axilla palpation: normal palpation of the breasts Resp Effort & Inspection: normal respiratory effort GI Inspection: Yes normal to inspection Palpation (GI): Soft to palpation Rectal Exam - Female: deferred General: Yes bladder normal to palpation External Female Exam: normal external appearance and normal appearance of the urethra Speculum Exam - Vagina: normal appearance of the vagina, normal palpation, normal vaginal discharge and vagina atrophic Speculum Exam - Cervix: normal appearance of the cervix and normal palpation Bimanual exam- vagina & uterus: normal bimanual exam, normal palpation, uterine size normal, bladder normal to palpation, normal palpation and non-tender Bimanual Exam- Adnexa, other: no masses Skin Other: Various skin lesions scattered throughout the body General skin exam: no rashes or lesions noted Rashes: no rashes Neuro General: patient oriented x3 Cognition (Neuro): normal cognition Extrem General: Yes normal to inspection Psych Attitude: cooperative Thought process: Normal thought process present Assessment & Plan Assessment & Plan (1) Encounter for well woman exam with routine gynecological exam: Code(s): Z01.419 - Encounter for gynecological examination (general) (routine) without abnormal findings Category: Medical (2) Skin lesion: Code(s): L98.9 - Disorder of the skin and subcutaneous tissue, unspecified Plan Discussed: Current recommendations for pap smears per ASCCP guidelines. Breast awareness, periodic self breast exams and yearly mammogram. Maintain a healthy lifestyle, well balanced diet and routine exercise. Contact the office with any postmenopausal bleeding. Derm referral placed. Patient verbalizes understanding and agrees to the plan of care. She was given opportunity to ask questions and all questions were answered to the best of my ability. RTO in 1 year for annual cnc supervisor exam. This note is constructed using voice recognition software. While every effort has been made to ensure accuracy, motor builder winder errors may have been included. Orders: Referrals Dermatology Referral L98.9 - Disorder of the skin and subcutaneous tissue, unspecified Coding Level of Care Code Est Pt Prev Care 40-64y(58015) Diagnoses Encounter for well woman exam with routine gynecological exam Z01.419 Skin lesion L98.9
[2024-06-03 12:52] VITALS: BP 130/82; BMI 30.6
== END 2024-06-03 13:18 | disposition home or self-care (01) ==
LOC: HO.HWS 12:47
PROVIDERS: PCP Internal Medicine; Visit Provider Advanced Practice Midwife
DX: Z01.419 Encounter for gynecological examination (general) (routine) without abnormal findings (principal); L98.9 Disorder of the skin and subcutaneous tissue, unspecified
CPT/HCPCS: 99396

== ENCOUNTER → 2024-06-03 12:47 | Outpatient (BNVA) | payer OTHER, SELFPAY | PROVIDERS: PCP Internal Medicine; Visit Provider Advanced Practice Midwife ==

== ENCOUNTER 2024-08-04 15:26 | Outpatient (AMB) | payer OTHER, SELFPAY ==
--- NOTE | 2024-08-04 15:29 | MHC.PC.OV ---
Vital Signs 08/04/24 15:34 Height 5 ft 1 in Weight 164 lb BMI 31.0 BP 134/80 Blood Pressure Location Lt brachial Position Sitting Intake Visit Reasons: bp Intake Note: Patient here for a follow up BP Supply Chain Program Manager Required: No Accompanied by: Spouse Allergies No Known Allergies [No Known Allergies*] Allergy (Verified 08/04/24 15:46) Medication List - Last Reconciled 08/04/24 by Emilia Knight MD hydrochlorothiazide 12.5 mg PO DAILY 90 days simvastatin 80 mg PO BEDTIME 90 days Tobacco use date assessed: 01/30/24 Dental Screening Dental Screen Date: 01/30/24 HPI HPI Comments History of Present Illness Details The patient is a 59-year-old female presenting with hypertension and hyperlipidemia. Her hypertension is well controlled with current medication, hydrochlorothiazide 12.5 mg once daily. Her last cholesterol check was in January, and she takes simvastatin 80 mg nightly. The patient reports good blood pressure control. However, she has noted muscle aches at night possibly associated with simvastatin, affecting her sleep. Her Body Mass Index (BMI) is currently 31, above the recommended level of less than 30, which was highlighted during the visit. The patient walks daily for 30 minutes on a machine set at level 2, as level 3 is too fast, and previously engaged in weightlifting but stopped due to shoulder pain. Laboratory tests are pending to reassess cholesterol since previous results were unattainable due to employment screening protocols. Additionally, a prior glucose level of 108 mg/dL places her in the prediabetes range, warranting repeat testing and further evaluation. [facility] Medical History (Updated 08/04/24 @ 17:42 by Emilia Knight MD) Fleshy skin mole Skin rash Hypovitaminosis D Mild recurrent major depression Class 1 obesity with body mass index (BMI) of 33.0 to 33.9 in adult Insomnia Dyslipidemia High cholesterol Surgical History No pertinent past surgical history Family History Mother Advanced dementia Essential hypertension Pure hypercholesterolemia Father Advanced dementia Social History Household Members: Spouse Household Members Other:: son Housing: House Alcohol intake: never Patient Tobacco Use Status: Never used Tobacco e-Cigarette/Vaping Use: Never Used Second Hand Smoke Exposure: No service: No Current occupational status: unemployed Sexual orientation: Straight/Heterosexual Gender identity: Female Cognitive needs: No Hearing needs: No Vision needs: No Female Reproductive History Menstrual Age of Menarche: 14 Questionnaire Thrive Questionnaire Date Thrive assessed: 01/30/24 ALHAJI-7 AMB Questionnaire ALHAJI-7 Date ALHAJI - 7 assessed: 01/30/24 Source: Developed by Drs. Dilip Farley, Eva Solares, Soham Coombs and colleagues, with an educational robyn from [employer]. Review of Systems Const All systems reviewed & are unremarkable except as noted in HPI and below Card Denies chest pain at rest, Denies chest pain with activity, Denies edema, Denies irregular heart rhythm, Denies claudication, Denies dyspnea, Denies dyspnea on exertion, Denies orthopnea, Denies paroxysmal nocturnal dyspnea and Denies slow heart rate Resp Denies cough, Denies dyspnea and Denies dyspnea on exertion Physical exam (Primary Care) Vital Signs: Last Vital Signs BP 134/80 08/04/24 15:34 BMI result Body Mass Index 31.0 BMI Assessment/Plan discussion: High BMI High, discussed plan: lifestyle, weight reduction, dietary and physical activity Tobacco/Smoking Status: Tobacco use Status Tobacco use date assessed 01/30/24 08/04/24 15:32 Patient Tobacco Use Status Never used Tobacco 08/04/24 15:32 e-Cigarette/Vaping Use Never Used 08/04/24 15:32 Thrive Assessment: Date of Thrive Assessment Date Thrive assessed 01/30/24 08/04/24 15:32 Resp Effort & Inspection: normal respiratory effort Auscultation: clear to auscultation bilaterally Cardio Jugular venous distension: no JVD Rate: regular rate Rhythm: regular rhythm Heart sounds: S1 normal heart sound present and S2 normal heart sound present Extrem General: Yes full ROM Office Procedures Flu Questionnaire Does the patient have a severe egg allergy?: No Immunizations Fluarix Triv [id number] (PF) 45 mcg (15 mcg x 3)/0.5 mL IM syringe Performing Provider: Emilia Knight MD [facility] Documented (not given) by: Elmo Yu, [facility] on 08/04/24 15:46 Reason Not Given: Patient Refused Coding Level of Care Code Est Pt Level 4 (42996) Complex EM visit Add On G2211 Diagnoses Essential hypertension I10 Hypovitaminosis D E55.9 Dyslipidemia E78.5 Muscle cramps R25.2 Impaired glucose tolerance R73.02 Time Spent (min) 24 Assessment & Plan Assessment & Plan (1) Essential hypertension: Code(s): I10 - Essential (primary) hypertension Category: Medical (2) Hypovitaminosis D: Code(s): E55.9 - Vitamin D deficiency, unspecified Category: Medical (3) Dyslipidemia: Code(s): E78.5 - Hyperlipidemia, unspecified Category: Medical (4) Muscle cramps: Code(s): R25.2 - Cramp and spasm Category: Medical (5) Impaired glucose tolerance: Code(s): R73.02 - Impaired glucose tolerance (oral) Category: Medical Plan - BP is well controlled: - Hyperlipidemia: Re-evaluate cholesterol levels. Consider lowering the simvastatin dose if cholesterol levels are found satisfactory to alleviate muscle aches. - Obesity: Encourage weight reductioDuring the consultation, we reviewed the patient's current management of hypertension and hyperlipidemia. I confirmed that her blood pressure is well controlled on her current regimen. The patient expressed concern about muscle aches attributed to simvastatin, and we discussed potentially lowering the dose pending cholesterol results, considering the cardiovascular risk balance. We addressed her BMI, emphasizing weight management through proper diet and regular exercise, including walking and light stretching, to mitigate obesity's health risks. We acknowledged her prediabetic status and stressed the importance of monitoring her glucose level with further tests. Additionally, nocturia was discussed in the context of her fluid intake and nighttime pattern. - Prediabetes: Conduct further blood glucose testing to monitor levels. - Nocturia: Monitor urinary symptoms; assess fluid intake. Patient was informed and verbally consented to the use of an ambient scribe for clinic note documentation during this visit. Orders: Orders Comprehensive [place]. Panel Fast Today I10 - Essential (primary) hypertension Influenza [id number] Immunization Today Z23 - Encounter for immunization Lipid Panel Today E78.5 - Hyperlipidemia, unspecified Vitamin D 25-OH Total Today E55.9 - Vitamin D deficiency, unspecified Magnesium Today R25.2 - Cramp and spasm Patient Instructions: - Continue taking hydrochlorothiazide 12.5 mg once daily. - Schedule a repeat cholesterol test and blood glucose level check promptly. - Maintain regular exercise by walking 30 minutes daily. - Monitor for muscle aches and report any exacerbation or changes. - Follow recommended dietary adjustments to aid weight loss. - Monitor fluid intake to help manage nocturnal urination issues.
[2024-08-04 15:34] VITALS: BP 134/80; BMI 31.0
== END 2024-08-04 15:56 | disposition home or self-care (01) ==
PROVIDERS: PCP Internal Medicine; Visit Provider Internal Medicine
DX: I10 Essential (primary) hypertension (principal); E55.9 Vitamin D deficiency, unspecified; E78.5 Hyperlipidemia, unspecified; R25.2 Cramp and spasm; R73.02 Impaired glucose tolerance (oral); Z23 Encounter for immunization

== ENCOUNTER → 2024-08-04 15:26 | Outpatient (BNVA) | payer OTHER, SELFPAY | PROVIDERS: PCP Internal Medicine; Visit Provider Internal Medicine | DX: I10 Essential (primary) hypertension (principal); E55.9 Vitamin D deficiency, unspecified; E78.5 Hyperlipidemia, unspecified; R25.2 Cramp and spasm; R73.02 Impaired glucose tolerance (oral); Z28.21 Immunization not carried out because of patient refusal | CPT/HCPCS: 90471 ==

== ENCOUNTER 2024-08-05 09:16 | Outpatient (REF) | payer OTHER, SELFPAY ==
[2024-08-05 10:51] LABS: Alanine Aminotransferase 18 U/L (0-31); Albumin Level 3.8 g/dL (3.5-5.0); Alkaline Phosphatase 92 U/L (39-117); Anion Gap 12 (12-20); Aspartate Amino Transferase 22 U/L (5-31); Bilirubin Total 0.3 mg/dL (0.0-1.0); Blood Urea Nitrogen 12 mg/dL (9-16); Calcium 9.4 mg/dL (8.4-10.2); Carbon Dioxide 26 mmol/L (22-29); Chloride 107 mmol/L (96-108); Cholesterol 236 mg/dL (<200); Estimated Glomerular Filt Rate > 60; Glucose Fasting 118 mg/dL (60-99); HDL Cholesterol 51 mg/dL (>40); LDL Cholesterol Calculated 167 mg/dL (<100); Magnesium 2.2 mg/dL (1.6-2.6); Potassium 4.6 mmol/L (3.3-5.1); Sodium 140 mmol/L (135-145); Total Protein 7.6 g/dL (6.5-8.0); Triglycerides 92 mg/dL (<150); Vitamin D 25-OH Total 18.8 ng/mL (>30)
== END 2024-08-05 09:17 | disposition home or self-care (01) ==
LOC: HO.LAB 09:16
PROVIDERS: PCP Internal Medicine; Visit Provider Internal Medicine
DX: Z00.00 Encounter for general adult medical examination without abnormal findings (principal); R25.2 Cramp and spasm; E55.9 Vitamin D deficiency, unspecified; E78.5 Hyperlipidemia, unspecified
CPT/HCPCS: 36415; 80053; 80061; 82306; 83735

== ENCOUNTER 2025-02-02 15:36 | Outpatient (AMB) | payer OTHER, SELFPAY ==
--- NOTE | 2025-02-02 15:52 | MHC.PC.OV ---
Vital Signs 02/02/25 15:53 Height 5 ft 1 in Weight 166 lb BMI 31.4 BP 122/80 Blood Pressure Location Lt brachial Position Sitting Intake Visit Reasons: annual exam Intake Note: Patient here for an annual physical exam Network Support Technician Required: No Accompanied by: Spouse Allergies No Known Allergies [No Known Allergies*] Allergy (Verified 02/02/25 16:14) Medication List - Last Reconciled 02/02/25 by Emilia Knight MD cholecalciferol (vitamin D3) 25 mcg PO DAILY 90 days hydrochlorothiazide 12.5 mg PO DAILY 90 days simvastatin 80 mg PO BEDTIME 90 days Tobacco use date assessed: 02/02/25 Dental Screening Dental Screen Date: 02/02/25 Did you have a dental visit in the last 12 months?: Yes Did you have a dental problem in the last 6 months where you did not have access to dental care?: No Was dental information given to patient?: Patient has dentist HPI HPI Comments History of Present Illness Details The patient is a 59-year-old female presenting for her physical exam. She has concerns regarding left leg pain subsequent to an insect bite that occurred on Saturday. She described localized redness and swelling initially, which has since subsided to a bruise but continues to cause discomfort, particularly at night. The pain can affect her sleep quality and results in a sensation of pain in the bone when pressure is applied. There is no current swelling or signs of infection noted by the patient. She previously managed conditions such as vitamin D deficiency and hyperlipidemia with prescribed medications and has a family history of dementia and hyperlipidemia. The patient missed her tetanus booster in 2015 and is prediabetic, with a blood sugar level recorded at 118 mg/dL. Mild major depression in remission. - Vaccinations: Due for tetanus vaccine in the upcoming year; up-to-date with Papanicolaou test, mammography last conducted in March of the previous year. - Lifestyle: Previously exercised daily, but has ceased exercise for a week. Plans to resume regular physical activity. - Nutrition and Supplements: Maintenance on vitamin D supplementation. - Screening: Blood sugar, cholesterol, and vitamins to be checked in fasting labs due to prediabetes and hyperlipidemia. [facility] Medical History (Updated 02/02/25 @ 16:31 by Emilia Knight MD) Fleshy skin mole Skin rash Hypovitaminosis D Mild recurrent major depression Class 1 obesity with body mass index (BMI) of 33.0 to 33.9 in adult Insomnia Dyslipidemia High cholesterol Surgical History No pertinent past surgical history Family History Mother Advanced dementia Essential hypertension Pure hypercholesterolemia Father Advanced dementia Social History Household Members: Spouse Household Members Other:: son Housing: House Alcohol intake: never Patient Tobacco Use Status: Never used Tobacco e-Cigarette/Vaping Use: Never Used Second Hand Smoke Exposure: No service: No Current occupational status: unemployed Sexual orientation: Straight/Heterosexual Gender identity: Female Cognitive needs: No Hearing needs: No Vision needs: No Female Reproductive History Menstrual Age of Menarche: 14 Questionnaire PHQ-9 Over the last 2 weeks, how often have you been bothered by any of the following problems? 1. Little interest or pleasure in doing things: not at all 2. Feeling down, depressed, or hopeless: not at all 3. Trouble falling or staying asleep, or sleeping too much: not at all 4. Feeling tired or having little energy: not at all 5. Poor appetite or overeating: not at all 6. Feeling bad about yourself - or that you are a failure or have let yourself or your family down: not at all 7. Trouble concentrating on things, such as reading the newspaper or watching television: not at all 8. Moving or speaking so slowly that other people could have noticed. Or the opposite - being so fidgety or restless that you have been moving around a lot more than usual: not at all 9. Thoughts that you would be better off or of hurting yourself in some way: not at all Total score: 0 Depression Screening Interpretation: Negative Depression Screening Done: Yes 98640 - PHQ-9 Billing: Yes Source: Developed by Drs. Dilip Farley, Eva Solares, Soham Coombs and colleagues, with an educational robny from [employer]. Thrive Questionnaire Date Thrive assessed: 02/02/25 I am a: Patient What is your living situation today?: I have a steady place to live Within the past 12 months, did the food you bought not last and you didn't have the money to get more?: I choose not to answer this question Within the past 12 months, did you worry whether your food would run out before you got money to buy more?: I choose not to answer this question Do you have trouble paying for medicines?: No Do you have trouble getting transportation to medical appointments?: No Do you have trouble paying your heating and electricity bill?: No Do you have trouble taking care of your child, family member or friend?: No Do you have trouble with day-to-day activities such as bathing, preparing meals, shopping, managing finances, etc.?: No Are you currently unemployed and looking for a job?: I choose not to answer this question Are you interested in more education?: I choose not to answer this question Please select the resources that you would like help with: None Currently or been in a relationship where the following occur: No concerns reported THRIVE Score: 0 AUDIT C Alcohol Use Questionnaire (AUDIT-C) 1. How often do you have a drink containing alcohol?: Never Total Score: 0 Score Reviewed/Action Taken: No ALHAJI-7 AMB Questionnaire ALHAJI-7 Date ALHAJI - 7 assessed: 02/02/25 Feeling nervous, anxious, or on edge: 0 = Not at all Not being able to stop or control worryin = Not at all Worrying too much about different things: 0 = Not at all Trouble relaxin = Not at all Being so restless that it is hard to sit still: 0 = Not at all Becoming easily annoyed or irritable: 0 = Not at all Feeling afraid as if something awful might happen: 0 = Not at all Total ALHAJI-7 score (0-4 normal; 5-9 mild; 10-14 moderate; 15-21 severe): 0 Source: Developed by Drs. Dilip Farley, Eva Solares, Soham Coombs and colleagues, with an educational robyn from [employer]. ALHAJI-7 Assessment Billing ALHAJI-7 Assessment Tool: ALHAJI-7 Assessment 18194 Review of Systems Const All systems reviewed & are unremarkable except as noted in HPI and below Card Denies chest pain at rest, Denies chest pain with activity, Denies edema, Denies irregular heart rhythm, Denies claudication, Denies dyspnea, Denies dyspnea on exertion, Denies orthopnea, Denies paroxysmal nocturnal dyspnea and Denies slow heart rate Resp Denies cough, Denies dyspnea and Denies dyspnea on exertion GI Denies abdominal pain, Denies change in bowel habits, Denies excessive flatus, Denies nausea and Denies vomiting Denies urinary incontinence, Denies urinary hesitancy and Denies urinary urgency Musc Denies atrophy, Denies deformity and Denies limited range of motion Physical exam (Primary Care) Vital Signs: Last Vital Signs BP 122/80 02/02/25 15:53 BMI result Body Mass Index 31.4 BMI Assessment/Plan discussion: High BMI High, discussed plan: lifestyle, weight reduction, dietary and physical activity Tobacco/Smoking Status: Tobacco use Status Tobacco use date assessed 02/02/25 02/02/25 15:57 Patient Tobacco Use Status Never used Tobacco 02/02/25 15:55 e-Cigarette/Vaping Use Never Used 02/02/25 15:55 PHQ-9: PHQ-9 Score PHQ-9: Total score 0 02/02/25 15:57 Depression Screening Interpretation: Negative Thrive Assessment: Date of Thrive Assessment Date Thrive assessed 02/02/25 02/02/25 15:55 Currently or been in a relationship where the following occur: No concerns reported [facility] Head: Yes normal to inspection, Yes normocephalic and Yes atraumatic Ears: external ears normal Eyes General: appearance normal, both eyes and all related structures Eyelids: Yes eyelids normal Conjunctivae: conjunctivae normal Neck Neck: Yes normal visual inspection and Yes supple Resp Effort & Inspection: normal respiratory effort Auscultation: clear to auscultation bilaterally Cardio Jugular venous distension: no JVD Rate: regular rate Rhythm: regular rhythm Heart sounds: S1 normal heart sound present and S2 normal heart sound present GI Inspection: Yes normal to inspection Palpation (GI): Soft to palpation and nontender Auscultation: normal bowel sounds Skin General skin exam: no rashes or lesions noted Neuro General: no focal motor deficits Extrem General: Yes full ROM Psych Appearance: grossly normal Coding Level of Care Code Est Pt Level 3 (80844) Est Pt Prev Care 18-39y(23088) Diagnoses Physical exam Z00.00 Left leg pain M79.605 Mild recurrent major depression F33.0 Additional Codes PHQ-9 - 53727 - PHQ-9 Billing: Yes ([id number]) ALHAJI-7 Assessment Billing - ALHAJI-7 Assessment Tool: ALHAJI-7 Assessment 37940 ([id number]) Time Spent (min) 34 Assessment & Plan Assessment & Plan (1) Physical exam: Code(s): Z00.00 - Encounter for general adult medical examination without abnormal findings Category: Medical (2) Left leg pain: Code(s): M79.605 - Pain in left leg Category: Medical (3) Mild recurrent major depression: Code(s): F33.0 - Major depressive disorder, recurrent, mild Category: Medical Plan Conduct a venous ultrasound to evaluate potential thrombosis in relation to the patient?s symptoms. Continue prescribed medications for hyperlipidemia and vitamin D deficiency, with attention to prescription adherence. Encourage and support the resumption of regular physical activity. Perform fasting laboratory tests to assess blood glucose, cholesterol, and vitamin D levels for ongoing health maintenance. Ensure up-to-date vaccinations, specifically planning for a tetanus booster next year. Patient was informed and verbally consented to the use of an ambient scribe for clinic note documentation during this visit. I discussed with the patient the nature of her leg pain, likely related to the insect bite, and the possibility of small vein thrombosis. We reviewed the rationale for conducting a venous ultrasound to ascertain this diagnosis. Informed her of the importance of maintaining current therapy for her chronic conditions and emphasized reassessment of blood glucose and lipid levels through fasting labs. Discussed the significance of regular exercise on her overall health. Addressed the need for up-to-date vaccinations, particularly the tetanus booster that is pending. Orders: Orders Lipid Panel Today E78.5 - Hyperlipidemia, unspecified Comprehensive [place]. Panel Fast Today M79.605 - Pain in left leg US venous duplex LE LT Today M79.605 - Pain in left leg Vitamin D 25-OH Total Today E55.9 - Vitamin D deficiency, unspecified Patient Instructions: - Continue taking prescribed medications for hyperlipidemia and vitamin D deficiency. - Schedule and complete a venous ultrasound of the left leg. - Restart a daily exercise routine to aid in managing overall health. - Fast as instructed for upcoming laboratory tests to monitor current vitamin, glucose, and cholesterol levels. - Remember to schedule the tetanus booster in the next year. - Follow up with any new or worsening symptoms related to her leg pain.
[2025-02-02 15:53] VITALS: BP 122/80; BMI 31.4
== END 2025-02-02 16:39 | disposition home or self-care (01) ==
LOC: HO.HMCH 15:37
PROVIDERS: PCP Internal Medicine; Visit Provider Internal Medicine
DX: Z00.00 Encounter for general adult medical examination without abnormal findings (principal); M79.605 Pain in left leg; F33.0 Major depressive disorder, recurrent, mild

== ENCOUNTER → 2025-02-02 15:36 | Outpatient (BNVA) | payer OTHER, SELFPAY | PROVIDERS: PCP Internal Medicine; Visit Provider Internal Medicine | DX: Z00.00 Encounter for general adult medical examination without abnormal findings (principal); E55.9 Vitamin D deficiency, unspecified; E78.5 Hyperlipidemia, unspecified; M79.605 Pain in left leg; F33.0 Major depressive disorder, recurrent, mild | CPT/HCPCS: 96127 ==

== ENCOUNTER 2025-02-03 10:51 | Outpatient (REF) | payer OTHER, SELFPAY ==
[2025-02-03 15:44] LABS: Alanine Aminotransferase 18 U/L (0-31); Albumin Level 4.1 g/dL (3.5-5.0); Alkaline Phosphatase 97 U/L (39-117); Anion Gap 12 (12-20); Aspartate Amino Transferase 23 U/L (5-31); Bilirubin Total 0.4 mg/dL (0.0-1.0); Blood Urea Nitrogen 16 mg/dL (9-16); Calcium 9.3 mg/dL (8.4-10.2); Carbon Dioxide 25 mmol/L (22-29); Chloride 108 mmol/L (96-108); Cholesterol 271 mg/dL (<200); Estimated Glomerular Filt Rate > 60; Glucose Fasting 105 mg/dL (60-99); HDL Cholesterol 56 mg/dL (>40); LDL Cholesterol Calculated 193 mg/dL (<100); Potassium 4.4 mmol/L (3.3-5.1); Sodium 141 mmol/L (135-145); Total Protein 7.9 g/dL (6.5-8.0); Triglycerides 112 mg/dL (<150); Vitamin D 25-OH Total 35.2 ng/mL (>30)
== END 2025-02-03 10:52 | disposition home or self-care (01) ==
LOC: HO.LAB 10:51
PROVIDERS: PCP Internal Medicine; Visit Provider Internal Medicine
DX: M79.605 Pain in left leg (principal); E78.5 Hyperlipidemia, unspecified; E55.9 Vitamin D deficiency, unspecified
CPT/HCPCS: 36415; 80053; 80061; 82306

== ENCOUNTER 2025-02-03 15:52 | Outpatient (REF) | payer OTHER, SELFPAY ==
--- NOTE | ~2025-02-03 | US_ITS ---
EXAMINATION: US TRIPLEX LOWER EXTREMITY, LEFT CLINICAL INFORMATION: Left lower extremity pain. COMPARISON: None available. TECHNIQUE: Color-flow triplex imaging with spectral analysis and compression Doppler were performed on the left lower extremity. FINDINGS: Respiratory variation, normal compression and augmented flow are noted throughout the left lower extremity. The visualized common femoral vein, superficial femoral vein, profunda femoral vein, popliteal vein and midcalf peroneal and posterior tibial venous segments show no evidence of deep venous thrombosis. There is no Meyer's cyst. US/US venous duplex LE LT IMPRESSION: No evidence of deep venous thrombosis involving the left lower extremity. Electronically signed by: Fer Acosta MD 02/04/2025 08:17 AM EDT
== END 2025-02-03 15:53 | disposition home or self-care (01) ==
LOC: HO.US 15:52
PROVIDERS: Visit Provider Internal Medicine
DX: M79.605 Pain in left leg (principal)
CPT/HCPCS: 93971

== ENCOUNTER → 2025-02-03 15:57 | Outpatient (BNV) | payer OTHER, SELFPAY | PROVIDERS: Visit Provider Radiology Diagnostic Radiology | DX: M79.662 Pain in left lower leg (principal) | CPT/HCPCS: 93971 ==

== ENCOUNTER 2025-06-08 15:24 | Outpatient (AMB) | payer OTHER, SELFPAY ==
[2025-06-08 15:40] VITALS: BP 122/80; PULSE 72; TEMP 36.3; O2SAT 98; BMI 30.9
--- NOTE | 2025-06-08 15:40 | MHC.PC.OV ---
Vital Signs 06/08/25 15:40 Height 5 ft 1 in Weight 163 lb 6 oz BMI 30.9 BP 122/80 Blood Pressure Location Lt brachial Position Sitting Pulse 72 Pulse Source Pulse Oximeter Temp 97.3 F Temp Source Temporal Artery Scan Pulse Oximetry (%) 98 Oxygen Delivery Method Room Air Intake Visit Reasons: bp Administrative Specialist Required: No Accompanied by: Self / Same As Patient Allergies No Known Allergies (No Known Allergies*) Allergy (Verified 06/08/25 16:08) Medication List - Last Reconciled 06/08/25 by Emilia Knight MD hydrochlorothiazide 12.5 mg PO DAILY 90 days simvastatin 80 mg PO BEDTIME 90 days Tobacco use date assessed: 06/08/25 Dental Screening Dental Screen Date: 06/08/25 Did you have a dental visit in the last 12 months?: Yes Did you have a dental problem in the last 6 months where you did not have access to dental care?: No HPI HPI Comments History of Present Illness Details The patient is a 59-year-old female presenting with follow-up for hypertension and hyperlipidemia management. She reports well-controlled blood pressure, currently measured at 122/80 mmHg, and excellent cholesterol levels. The patient experiences nocturnal leg pain and occasional dizziness, which she suspects may be related to her medication. She has a history of vitamin D deficiency and has been advised to continue supplementation to prevent deficiency. Additionally, she has been referred for a nail condition affecting her foot. [facility] Medical History (Updated 06/08/25 @ 16:19 by Emilia Knight MD) Fleshy skin mole Skin rash Hypovitaminosis D Mild recurrent major depression Class 1 obesity with body mass index (BMI) of 33.0 to 33.9 in adult Insomnia Dyslipidemia High cholesterol Surgical History No pertinent past surgical history Family History Mother Advanced dementia Essential hypertension Pure hypercholesterolemia Father Advanced dementia Social History Household Members: Spouse Household Members Other:: son Housing: House Alcohol intake: never Patient Tobacco Use Status: Never used Tobacco e-Cigarette/Vaping Use: Never Used Second Hand Smoke Exposure: No service: No Current occupational status: unemployed Sexual orientation: Straight/Heterosexual Gender identity: Female Cognitive needs: No Hearing needs: No Vision needs: No Female Reproductive History Menstrual Age of Menarche: 14 Questionnaire PHQ-9 Over the last 2 weeks, how often have you been bothered by any of the following problems? 1. Little interest or pleasure in doing things: not at all 2. Feeling down, depressed, or hopeless: not at all 3. Trouble falling or staying asleep, or sleeping too much: not at all 4. Feeling tired or having little energy: not at all 5. Poor appetite or overeating: not at all 6. Feeling bad about yourself - or that you are a failure or have let yourself or your family down: not at all 7. Trouble concentrating on things, such as reading the newspaper or watching television: not at all 8. Moving or speaking so slowly that other people could have noticed. Or the opposite - being so fidgety or restless that you have been moving around a lot more than usual: not at all 9. Thoughts that you would be better off or of hurting yourself in some way: not at all Total score: 0 Depression Screening Interpretation: Negative Depression Screening Done: Yes 39679 - PHQ-9 Billing: Yes Source: Developed by Drs. Dilip Farley, Eva Solares, Soham Coombs and colleagues, with an educational robyn from [employer]. Thrive Questionnaire Date Thrive assessed: 06/08/25 I am a: Patient What is your living situation today?: I have a steady place to live Within the past 12 months, did the food you bought not last and you didn't have the money to get more?: I choose not to answer this question Within the past 12 months, did you worry whether your food would run out before you got money to buy more?: I choose not to answer this question Do you have trouble paying for medicines?: No Do you have trouble getting transportation to medical appointments?: No Do you have trouble paying your heating and electricity bill?: No Do you have trouble taking care of your child, family member or friend?: No Do you have trouble with day-to-day activities such as bathing, preparing meals, shopping, managing finances, etc.?: No Are you currently unemployed and looking for a job?: I choose not to answer this question Are you interested in more education?: I choose not to answer this question Please select the resources that you would like help with: None Currently or been in a relationship where the following occur: I choose not to answer THRIVE Score: 0 AUDIT C Alcohol Use Questionnaire (AUDIT-C) 1. How often do you have a drink containing alcohol?: Never 3. How often do you have six or more drinks on one occasion?: Never Total Score: 0 Score Reviewed/Action Taken: No ALHAJI-7 AMB Questionnaire ALHAJI-7 Date ALHAJI - 7 assessed: 06/08/25 Feeling nervous, anxious, or on edge: 0 = Not at all Not being able to stop or control worryin = Not at all Worrying too much about different things: 0 = Not at all Trouble relaxin = Not at all Being so restless that it is hard to sit still: 0 = Not at all Becoming easily annoyed or irritable: 0 = Not at all Feeling afraid as if something awful might happen: 0 = Not at all Total ALHAJI-7 score (0-4 normal; 5-9 mild; 10-14 moderate; 15-21 severe): 0 Source: Developed by Drs. Dilip Farley, Eva Solares, Soham Coombs and colleagues, with an educational robyn from [employer]. ALHAJI-7 Assessment Billing ALHAJI-7 Assessment Tool: ALHAJI-7 Assessment 30242 Review of Systems Const All systems reviewed & are unremarkable except as noted in HPI and below Card Denies chest pain at rest, Denies chest pain with activity, Denies edema, Denies irregular heart rhythm, Denies claudication, Denies dyspnea, Denies dyspnea on exertion, Denies orthopnea, Denies paroxysmal nocturnal dyspnea and Denies slow heart rate Resp Denies cough, Denies dyspnea and Denies dyspnea on exertion Physical exam (Primary Care) Vital Signs: Last Vital Signs Temp 97.3 F 06/08/25 15:40 Pulse 72 06/08/25 15:40 BP 122/80 06/08/25 15:40 Pulse Ox 98 06/08/25 15:40 Oxygen Delivery Method Room Air 06/08/25 15:40 BMI result Body Mass Index 30.9 Tobacco/Smoking Status: Tobacco use Status Tobacco use date assessed 06/08/25 06/08/25 15:41 Patient Tobacco Use Status Never used Tobacco 06/08/25 15:41 e-Cigarette/Vaping Use Never Used 06/08/25 15:41 PHQ-9: PHQ-9 Score PHQ-9: Total score 0 06/08/25 16:13 Depression Screening Interpretation: Negative Thrive Assessment: Date of Thrive Assessment Date Thrive assessed 06/08/25 06/08/25 15:41 Currently or been in a relationship where the following occur: I choose not to answer Resp Effort & Inspection: normal respiratory effort Auscultation: clear to auscultation bilaterally Cardio Jugular venous distension: no JVD Rate: regular rate Rhythm: regular rhythm Heart sounds: S1 normal heart sound present and S2 normal heart sound present Extrem General: Yes full ROM Coding Level of Care Code Est Pt Level 3 (67351) Diagnoses Essential hypertension I10 Dyslipidemia E78.5 Onychogryposis L60.2 Additional Codes ALHAJI-7 Assessment Billing - ALHAJI-7 Assessment Tool: ALHAJI-7 Assessment 65531 ([id number]) PHQ-9 - 43883 - PHQ-9 Billing: Yes ([id number]) Time Spent (min) 19 Assessment & Plan Assessment & Plan (1) Essential hypertension: Code(s): I10 - Essential (primary) hypertension Category: Medical (2) Dyslipidemia: Code(s): E78.5 - Hyperlipidemia, unspecified Category: Medical (3) Onychogryposis: Code(s): L60.2 - Onychogryphosis Category: Medical Plan Plan Patient was informed and verbally consented to the use of an ambient scribe for clinic note documentation during this visit. 1. Essential Hypertension The patient's blood pressure is well-controlled at 122/80 mmHg. Continue current antihypertensive therapy and monitor blood pressure regularly. 2. Hyperlipidemia The patient's cholesterol levels are excellent. Continue current lipid-lowering therapy and re-evaluate cholesterol levels in 6 months. 3. Nail Condition The patient has been referred for evaluation of a nail condition affecting her foot. Follow up with the specialist as advised. Orders: Referrals Podiatry Referral L60.2 - Onychogryphosis
--- OUTSIDE RECORDS SUMMARY | 2025-06-08 18:18 | XMS_ITS | Patient Health Record ---
Author Organization [facility] Address [address] [place] [address] Care Team Providers Care Mammal Keeper Name Role Phone Kathleen Gupta Primary Care Provider Dwain Knowles Unavailable [phone] Reason For Referral No Information Medications Medication SIG (Take, Route, Frequency, Duration) Notes Start Date End Date Status traZODone HCl 50 MG Oral; Duration: 30 Active Rosuvastatin Calcium 40 MG Oral; Duration: 90 Active Naproxen 500 MG Oral; Duration: 15 Active Walking Boot/Pneumatic As directed Wear Daily; Duration: Until further notice 06/14/2020 Active Physical Therapy . . . 2-3x/week; Durat ion: 3-4 weeks 06/14/2020 Active Night Splint AFO - L1930 as directed 06/14/2020 Active Social History Tobacco Use: Social History Observation Description Date Details (start date - stop date) Never Smoker NA - NA Tobacco Use/Smoking Question Answer Notes Are you a: nonsmoker Additional Findings: Tobacco Non-User Current no n-smoker Alcohol Screen Question Answer Notes Did you have a drink containing alcohol in the p ast year? No Points 0 Interpretation Negative Tobacco use other than smoking: Question Answer Notes Are you an other tobacco user? No Plan Of Treatment No Information Insurance Providers Payer Name Payer Address Payer Phone Subscriber Number Group Number Insured Name Patient Relationship to Insured Coverage Start Date Coverage End Date [employer] [address] [place] [address] [id number] [place] Spouse - patient is the spouse of the insured Medical (General) History Medical History History ICD Code Anxiety Arthritis Back,Hip,and Knee pain CAD (Cholesterol) Depression Surgical History Surgery Date(Month/Year) Hospitalization History Reason Date(Month/Year) [facility] in [place], X ray Left Foot 04/22/20
--- OUTSIDE RECORDS SUMMARY | 2025-06-08 18:19 | XMS_ITS | Patient Health Record ---
Author Organization [facility] Address [address] [place] [id number] Care Team Providers Care Neon Pumper Name Role Phone NONE, NONE Primary Care Provider Dilip Edmond [phone] Reason For Referral No Information Plan Of Treatment No Information
== END 2025-06-08 16:18 | disposition home or self-care (01) ==
LOC: HO.HMCH 15:25
PROVIDERS: PCP Internal Medicine; Visit Provider Internal Medicine
DX: I10 Essential (primary) hypertension (principal); E78.5 Hyperlipidemia, unspecified; L60.2 Onychogryphosis

== ENCOUNTER → 2025-06-08 15:24 | Outpatient (BNVA) | payer OTHER, SELFPAY | PROVIDERS: PCP Internal Medicine; Visit Provider Internal Medicine | DX: I10 Essential (primary) hypertension (principal); E78.5 Hyperlipidemia, unspecified; E55.9 Vitamin D deficiency, unspecified; L60.2 Onychogryphosis | CPT/HCPCS: 96127 ==

== ENCOUNTER 2025-06-30 14:36 | Outpatient (REF) | payer OTHER, SELFPAY | END 2025-06-30 14:37 | disposition home or self-care (01) | LOC: HO.LNP 14:36 | PROVIDERS: PCP Internal Medicine; Visit Provider Student in an Organized Health Care Education/Training Program | DX: L60.2 Onychogryphosis (principal); B35.1 Tinea unguium | CPT/HCPCS: 87101; 87220; 88304; 88312 ==

== ENCOUNTER 2025-06-30 14:36 | Outpatient (AMB) | payer OTHER, SELFPAY ==
[2025-06-30 14:45] VITALS: BMI 30.8
--- NOTE | 2025-06-30 14:45 | A.OFFVIS_ITS ---
Vital Signs 06/30/25 14:45 Height 5 ft 1 in Weight 163 lb BMI 30.8 Intake Visit Reasons: Onychogryphosis Intake Note: Cele is a 59 year old female who presents today as a new patient with complaints of Onychogryposis of the left hallux. Pt states this occured when the edge of a palette fell on her toe nail. She has seen a previous scientific associate Dr. lashaun Fernandez in [place] where they trimmed about half of the nail and it since grew back and persist with the nail disorder. She has not tried any fungal treatment just coconut oil and that has not helped. Allergies No Known Allergies (No Known Allergies*) Allergy (Verified 06/30/25 14:47) HPI HPI Onychogryphosis: Details: 59-year-old female with past medical history of hyperlipidemia who presents for left big toenail deformity. She states that approximately 1 year ago, she dropped a Pallet on her toe. Ever since then, the toenails started sitting well discolored and thickened. She now has pain with the nail loosening. She has not tried any treatment so far. [facility], [facility] Medical History Fleshy skin mole Skin rash Hypovitaminosis D Mild recurrent major depression Class 1 obesity with body mass index (BMI) of 33.0 to 33.9 in adult Insomnia Dyslipidemia High cholesterol Surgical History No pertinent past surgical history Family History Mother Advanced dementia Essential hypertension Pure hypercholesterolemia Father Advanced dementia Social History Household Members: Spouse Household Members Other:: son Housing: House Alcohol intake: never Patient Tobacco Use Status: Never used Tobacco e-Cigarette/Vaping Use: Never Used Second Hand Smoke Exposure: No service: No Current occupational status: unemployed Sexual orientation: Straight/Heterosexual Gender identity: Female Cognitive needs: No Hearing needs: No Vision needs: No Female Reproductive History Menstrual Age of Menarche: 14 Review of Systems Const All systems reviewed & are unremarkable except as noted in HPI and below Physical Exam Vital Signs: BMI result Body Mass Index 30.8 Extrem Other: *Bilateral Lower Extremity Focused Exam Vascular: DP/PT 2/4, CFT less than 3 seconds all digits, temperature gradient warm to cool, no pedal edema. Derm: Thickened dystrophic left hallux nail 50% mycotic with loosening. Subungual debris. The proximal 50% of the nail appears non-mycotic/ pink hue. Neuro: Protective sensation grossly intact to bilateral lower extremities MSK: Mild tenderness on lifting of the left hallux nail Assessment & Plan Assessment & Plan (1) Onychogryposis: Code(s): L60.2 - Onychogryphosis Category: Medical Plan: * Nail biopsy performed of left hallux nail. * Discussed treatment options including topical treatment versus oral antifungal medications. * Explained that oral antifungals such as terbinafine (Lamisil) may cause gastrointestinal upset, headache, rash, taste disturbances, and hepatotoxicity. Baseline and monthly liver function monitoring is recommended during therapy. Patients should be advised to report symptoms such as jaundice, dark urine, or persistent nausea. * Patient was counseled on the importance of anti-fungal foot hygiene, including daily washing and thorough drying of feet, regular changing of socks, and use of breathable footwear. Recommended antifungal sprays shoes. Education provided on keeping toenails trimmed and clean to reduce risk of fungal infections. Preventive strategies discussed to minimize recurrence of fungal infections. * Rx Ciclopirox ointment * Follow up in 1 month Orders: Orders Fungus Cult Hair/Skin/Nail Today L60.2 - Onychogryphosis Surgical Today L60.2 - Onychogryphosis Medications: New ciclopirox 8% Applied to fungal toenails daily. Remove buildup at the end of the week. 1 appl topical BEDTIME 6.6 mL 3RF onychomycosis 4 months L60.2 - Onychogryphosis Coding Level of Care Code New Pt Level 3 (07999) Diagnoses Onychogryposis L60.2 Time Spent (min) 35
--- OUTSIDE RECORDS SUMMARY | 2025-06-30 18:18 | XMS_ITS | Patient Health Record ---
Author Organization [facility] Address [address] [place] [address] Care Team Providers Care Crab Catcher Name Role Phone Kathleen Gupta Primary Care Provider Dwain Montero Unavailable [phone] Reason For Referral No Information Medications Medication [...] Date Coverage End Date [employer] [address] [place] [address] [id number] Blue Prince Spouse - patient is the spouse of the insured Medical (General) History Medical History History ICD Code Anxiety Arthritis Back,Hip,and Knee pain CAD (Cholesterol) Depression Surgical History Surgery Date(Month/Year) Hospitalization History Reason Date(Month/Year) [facility] in [place], X ray Left Foot 04/22/20
--- OUTSIDE RECORDS SUMMARY | 2025-06-30 18:19 | XMS_ITS | Patient Health Record ---
Author Organization [facility] Address [address] [place] [address] Care Team Providers Care Casing Crew Pusher Name Role Phone NONE, NONE Primary Care Provider Dilip Edmond [phone] Reason For Referral No Information Plan Of Treatment No Information
== END 2025-06-30 15:03 | disposition home or self-care (01) ==
LOC: HO.HPODS 14:37
PROVIDERS: PCP Internal Medicine; Visit Provider Student in an Organized Health Care Education/Training Program
DX: L60.2 Onychogryphosis (principal)
CPT/HCPCS: 99203

== ENCOUNTER 2025-07-03 07:48 | Emergency (ER) | payer OTHER, SELFPAY ==
--- NOTE | ~2025-07-03 | CT_ITS ---
CLINICAL HISTORY: groin pain CT abdomen and pelvis with contrast Comparison: None available Findings: No consolidation at the lung bases. Unremarkable gallbladder and bladder. Hepatic steatosis. No hydronephrosis or nephrolithiasis. Left renal parapelvic cysts. Subcentimeter low attenuating left renal lesion. Retroverted uterus. The other solid organs are unremarkable. No bowel wall thickening or dilation. A normal appendix is identified. Colonic diverticulosis. No aneurysm. No calcified atherosclerotic disease. No lymphadenopathy. No ascites. No acute osseous abnormality. No inguinal hernia. No lymphadenopathy. No skin thickening, infiltration of the subcutaneous fat or fluid collection. Impression: No acute findings. This document has been electronically signed by: Hermelinda De La Torre MD on 07/03/2025 14:40:01
[2025-07-03 07:53] VITALS: BP 180/79; PULSE 79; RESP 16; TEMP 37; O2SAT 95; BMI 26.5
[2025-07-03 08:12] VITALS: BP 152/77; PULSE 71; RESP 16; O2SAT 94
--- NOTE | 2025-07-03 08:15 | PC.NURSE ---
59 F presents to ED with rash in groin area, started 2 weeks ago and got worse. Pt sts lower abdominal pain started after the rash, 01/23. Pt denies any n/v/c/d or difficulty/pain when urinating. RR even and unlabored, denies CP or SOB. A+OX4, calm,cooperative.
--- OUTSIDE RECORDS SUMMARY | 2025-07-03 08:26 | XMS_ITS | Patient Health Record ---
Author Organization [facility] Address [address] [place] [id number] Care Team Providers Care Chandelier Maker Name Role Phone NONE, NONE Primary Care Provider Dilip Edmond [phone] Reason For Referral No Information Plan Of Treatment No Information
--- OUTSIDE RECORDS SUMMARY | 2025-07-03 08:26 | XMS_ITS | Patient Health Record ---
Author Organization [facility] Address [address] [place] [address] Care Team Providers Care Wood Barker Name Role Phone Kathleen Gupta Primary Care Provider Dwain Montero Unavailable [phone] Reason For Referral No Information Medications Medication [...] Date Coverage End Date [employer] [address] [place] [address] [id number] Blue Prince Spouse - patient is the spouse of the insured Medical (General) History Medical History History ICD Code Anxiety Arthritis Back,Hip,and Knee pain CAD (Cholesterol) Depression Surgical History Surgery Date(Month/Year) Hospitalization History Reason Date(Month/Year) [facility] in [place], X ray Left Foot 04/22/20
--- NOTE | 2025-07-03 10:37 | PC.NURSE ---
Pt provided with apple juice and water to encourage patient to urinate for a urine sample after ok from .
--- NOTE | 2025-07-03 10:43 | PC.NURSE ---
Pt provided with bottle of nystatin powder and directed to apply TID as needed to the rash area on her groin. This nurse offered to apply the nystatin but pt requested to self apply. Pt self applied after instruction on how to apply.
--- NOTE | 2025-07-03 10:44 | ED_ITS ---
HPI - General Adult General Chief complaint: Skin/Abscess/Foreign Body Stated complaint: pain on belly and stomach due to rash Time Seen by Provider: 07/03/25 09:20 Source: patient and family Mode of arrival: ambulatory Limitations: no limitations History of Present Illness ED Provider: BOUCHRA Diaz HPI narrative: This is a 59-year-old female past medical history significant for recurrent intertrigo presents to the emergency department with complaints of lower abdominal discomfort ongoing for the past few weeks also reporting a rash to the groin region. She reports this rash has been ongoing for the past 2 weeks. She tells me it is recurrent and she typically gets prescribed an antifungal cream which she does not really feel like it works. She reports that the rash is ?wet ?. Denies vaginal discharge or pain. She denies associated nausea, vomiting, diarrhea, chest pain, shortness breath, fevers, chills, changes in urinary habit Related Data Previous Rx's ?Medication ?Instructions ?Recorded hydrochlorothiazide 12.5 mg tablet 12.5 mg PO DAILY 90 days #90 tabs 01/30/25 simvastatin 80 mg tablet 80 mg PO BEDTIME 90 days #90 tabs 01/30/25 ciclopirox 8 % topical solution 1 appl topical BEDTIME 06/30/25 onychomycosis 4 months #6.6 mL nystatin 100,000 unit/gram topical 1 appl topical BID #30 grams 07/03/25 powder Allergies Allergy/AdvReac Type Severity Reaction Status Date / Time No Known Allergies (No Known Allergy Verified 07/03/25 07:54 Allergies*) Review of Systems 2 Review of Systems: Yes all other systems are reviewed and are negative PMFSH Past Medical History Attestation statement: The following information was validated with the patient. Source: old records reviewed and nursing notes reviewed Medical History Fleshy skin mole Skin rash Hypovitaminosis D Mild recurrent major depression Class 1 obesity with body mass index (BMI) of 33.0 to 33.9 in adult Insomnia Dyslipidemia High cholesterol Surgical History No pertinent past surgical history Family History Family History Mother Advanced dementia Essential hypertension Pure hypercholesterolemia Father Advanced dementia Social History Social History Household Members: Spouse Household Members Other:: son Housing: House Alcohol intake: never Patient Tobacco Use Status: Never used Tobacco Smoked in Last 30 Days: No e-Cigarette/Vaping Use: Never Used Second Hand Smoke Exposure: No Use of substances other than those prescribed or required for medical reasons: No Advance Directives: No Advance Directives Information Provided: Yes Patient : No service: No Current occupational status: unemployed Sexual orientation: Straight/Heterosexual Gender identity: Female Cognitive needs: No Hearing needs: No Vision needs: No Physical Exam ED Exam Exam: Appearance: Alert.? Oriented X3.? No acute distress.? Head: Normocephalic, atraumatic, no step-offs or deformities Eyes: Pupils equal, round and reactive to light.? ENT: Pharynx normal.? Neck: Normal inspection.? Neck supple.? CVS: Normal heart rate and rhythm.? Pulses normal.? Respiratory: No respiratory distress.? Breath sounds normal.? Abdomen: Soft and mild discomfort to lower abdomen.? Skin: Skin warm and dry.? Normal skin color.? Normal skin turgor.?+ very mild intertrigo to bilateral groin Extremities: No lower extremity edema.? No calf ttp. 5/5 strength to bilateral upper and lower extremities Back: No midline tenderness, no C-spine tenderness, full range of motion, no CVA tenderness bilaterally Neuro: Oriented X 3.? No motor deficit.? No sensory deficit. CN 2-12 intact Vital Signs: Vital Signs - 24 hr 07/03/25 07:53 07/03/25 08:12 07/03/25 14:43 Temperature 98.6 F 0 F L Pulse Rate 79 71 71 Respiratory Rate 16 16 16 Blood Pressure 180/79 H 152/77 H 152/77 H Pulse Oximetry 95 94 94 Oxygen Delivery Method Room Air Room Air Room Air BMI result Body Mass Index 26.5 vss Course Reevaluation(s) Reevaluation #1: Patient's CBC unremarkable. Chemistry no acute findings eating intervention. Negative lipase UA without infection Time: 10:50 Reevaluation #2: Nystatin powder was applied by nursing. So pending CAT scan Time: 11:45 Reevaluation #3: CT still pending. Apologies to patient due to wait time. They are anxious to get out of here Time: 14:20 Additional Reevaluation(s): Unfortunately, patient has been in the department greater than 6 hours. There are issues with Radiology at this time. This issue has been escalated to administration waiting to hear back. Patient is not willing to stay and wait for her results. Unfortunately she will be leaving against medical advice. Educated patient on diagnosis and treatment plan, answered all question, patient verbalizes understanding. At this time patient will be discharged home, advised to return with new or worsening symptoms. Educated on worrisome signs and symptoms and when to return. Patient decided to leave against medical advice. I took the time to go over risks of leaving against medical advice including . Patient verbalizes understanding of this. Advised them to come back if they change their mind. Shortly after patient left, CT results in no acute findings. Medications Administered Discontinued Medications Generic Name Dose Route Start Last Admin Trade Name Freq PRN Reason Stop Dose Admin Iohexol 85 ml 07/03/25 12:04 07/03/25 12:04 Iohexol 350 Mg/Ml 100 Ml Infus..Btl IV 07/03/25 12:05 85 ml ONCE ONE Administration Nystatin 1 appl 07/03/25 10:38 07/03/25 10:43 Nystatin Powder 15 Gm Bottle TOPICAL 07/03/25 10:39 1 appl ONCE ONE Administration Protocol Medical Decision Making Medical Decision Making [facility] Narrative: 1048 59 year old female presents w/ rash to groin b/l and lower abd discomfort on exam PE w/ intertrigo to b/l groin very mild and slight lower abd discomfort on exam Hx and pe concerning for intertrigo. Abdominal ache present for a few weeks will rule out intra-abdominal etiologies although unlikely. I do not suspect acute appendicitis, cholecystitis, diverticulitis, pancreatitis. Enteritis a possibility no signs of acute abdomen will rule out metabolic derangements, UTI. Plan labs, imaging Differential Diagnosis Differential Diagnoses: The differential diagnosis associated with the presentation includes (Hx and pe concerning for intertrigo. Abdominal ache present for a few weeks will rule out intra-abdominal etiologies although unlikely. I do not suspect acute appendicitis, cholecystitis, diverticulitis, pancreatitis. Enteritis a possibility no signs of acute abdomen will rule out metabolic derang) Admission/Observation Consideration of admission/observation: Escalation of care including admission/observation considered Lab Data [facility] Lab Attestation statement: I reviewed the patient's lab results. 07/03/25 10:54 07/03/25 10:54 Labs: Lab Results 07/03/25 07/03/25 Range/Units 10:45 10:54 WBC 6.8 (4.8-10.8) X10*3/uL RBC 5.04 (4.20-5.50) X10*6/uL Hgb 13.5 (12.0-16.0) g/dl Hct 43.1 (37.0-47.0) % MCV 85.5 (80.0-98.0) fL MCH 26.8 L (27.0-33.0) pg MCHC 31.3 (31.0-35.0) g/dl RDW 14.6 (11.0-16.0) % Plt Count 262 (160-400) X10*3/uL MPV 8.8 L (9.4-12.3) fL Immature Gran % (Auto) 0.1 (0.0-0.4) % Neut % (Auto) 62.6 (45-73) % Lymph % (Auto) 27.9 (20-40) % [place] % (Auto) 7.2 (2-11) % Eos % (Auto) 1.6 (0-4) % Baso % (Auto) 0.6 (0-2) % Lymph # (Auto) 1.9 (1.2-4.9) X10*3/uL [place] # (Auto) 0.5 (0.1-1.2) X10*3/uL Eos # (Auto) 0.1 (0.0-0.4) X10*3/uL Baso # (Auto) 0.0 (0.0-0.2) X10*3/uL Abs Immat Gran (auto) 0.01 (0.00-0.03) X10*3/uL Absolute Neuts (auto) 4.2 (2.0-8.3) x10*3/uL Absolute Nucleated RBC 0.000 (0.0-0.012) X10*3/uL Nucleated RBC % (auto) 0.0 (0.0-0.2) /100WBC Sodium 142 (135-145) mmol/L Potassium 4.2 (3.3-5.1) mmol/L Chloride 108 (96-108) mmol/L Carbon Dioxide 26 (22-29) mmol/L Anion Gap 12 (12-20) BUN 15 (9-16) mg/dL Creatinine 0.63 (0.5-1.4) mg/dL Estim Creat Clear Calc 95.8 Estimated GFR > 60 Random Glucose 119 H (60-115) mg/dL Calcium 9.6 (8.4-10.2) mg/dL Magnesium 2.2 (1.6-2.6) mg/dL Total Bilirubin 0.2 (0.0-1.0) mg/dL AST 26 (5-31) U/L ALT 20 (0-31) U/L Alkaline Phosphatase 89 (39-117) U/L Total Protein 7.8 (6.5-8.0) g/dL Albumin 4.3 (3.5-5.0) g/dL Lipase 30 (8-78) U/L Urine Color Yellow Urine Appearance Clear Urine pH 7.5 (5.0-9.0) Ur Specific [place] 1.010 (1.005-1.025) Urine Protein Negative (Neg-Trace) mg/dL Urine Glucose (UA) Negative (Negative) mg/dL Urine Ketones Negative (Negative) mg/dL Urine Blood Negative (Negative) Urine Nitrite Negative (Negative) Ur Leukocyte Esterase Negative (Negative) Independent Interpretation I performed an independent interpretation of an: CT Scan Radiology Impression Discussion of test interpretation with radiology: I have reviewed the radiologist's reading. External Record Review External record reviewed: Inpatient record, Office record, Outpatient record, Prior outpatient labs, Prior outpatient radiology, Primary care record and Outside ED record Chronic Conditions Patient?s care impacted by: Other (intertrigo recurrent ) Social Determinants Patient?s care significantly limited by Social Determinants of Health including: Inadequate housing, Low income, Alcoholism and drug addiction in family, Problems related to primary support group, Unemployment, Problems related to employment and Other Social Determinant of Health Critical Care Time Critical Care Time Critical Care Time: Yes Total Critical Care Time: 35 Attestation: I attest to this time spent taking care of the patient, obtaining history, physical, reviewing labs, imaging, treatment of patients condition +/- specialist/hospitalist consult +/- procedure Discharge Plan Discharge Clinical Impression: Lower abdominal pain, Intertrigo, Left against medical advice Patient Disposition: Left Against Medical Advice Instructions: Abdominal Pain (ED) Additional Instructions: Take your medications as prescribed. If you were prescribed antibiotics today, it is important that you take your medication to their entirety, do not skip any doses, do not finish them early. Follow-up with your primary care provider this week. Return to the emergency department with new or worsening symptoms. Such as fevers, chills, chest pain, shortness of breath, nausea, vomiting, dizziness, headache, vision changes, lethargy In case of emergency call 911 Patient decided to leave against medical advice. I took the time to go over risks of leaving against medical advice including . Patient verbalizes understanding of this. Advised them to come back if they change their mind. Prescriptions: New nystatin 100,000 unit/gram powder 1 appl topical BID Qty: 30 0RF No Action hydrochlorothiazide 12.5 mg tablet 12.5 mg PO DAILY 90 Days Qty: 90 1RF simvastatin 80 mg tablet 80 mg PO BEDTIME 90 Days Qty: 90 1RF ciclopirox 8 % solution 1 appl topical BEDTIME 120 Days Qty: 6.6 3RF Rx Instructions: Applied to fungal toenails daily. Remove buildup at the end of the week. Referrals: Emilia Mancini MD [Primary Care Provider, Internal Medicine] - 1 week Stand Alone Forms: Against Medical Advice Interventions: ED Discharge Assessment Last Done: 07/03/25 14:43 Discharge Date/Time: 07/03/25 14:44 Print Language: Niuean
[2025-07-03 10:53] LABS: Appearance Urine Clear; Glucose Urine UA Negative (Negative); PH 7.5 (5.0-9.0); Specific Gravity - Urine 1.010 (1.005-1.025)
[2025-07-03 10:58] LABS: MANUAL DIFF FLAG NO
[2025-07-03 11:05] LABS: Hematocrit 43.1 % (37.0-47.0); Hemoglobin 13.5 g/dl (12.0-16.0); Imm Gran Abs Auto 0.01 X10*3/uL (0.00-0.03); Imm Gran Pct Auto 0.1 % (0.0-0.4); Lymphocytes Absolute Auto 1.9 X10*3/uL (1.2-4.9); Mean Corpuscular HGB Conc 31.3 g/dl (31.0-35.0); Mean Corpuscular Hemoglobin 26.8 pg (27.0-33.0); Mean Corpuscular Volume 85.5 fL (80.0-98.0); NRBC Abs Auto 0.000 X10*3/uL (0.0-0.012); NRBC Pct Auto 0.0 /100WBC (0.0-0.2); Platelet Count 262 X10*3/uL (160-400); Red Blood Count 5.04 X10*6/uL (4.20-5.50); White Blood Count 6.8 X10*3/uL (4.8-10.8)
[2025-07-03 11:43] LABS: Alanine Aminotransferase 20 U/L (0-31); Albumin Level 4.3 g/dL (3.5-5.0); Alkaline Phosphatase 89 U/L (39-117); Anion Gap 12 (12-20); Aspartate Amino Transferase 26 U/L (5-31); Blood Urea Nitrogen 15 mg/dL (9-16); Calcium 9.6 mg/dL (8.4-10.2); Carbon Dioxide 26 mmol/L (22-29); Chloride 108 mmol/L (96-108); Creatinine Clr Calc Pharmacy 95.8; Estimated Glomerular Filt Rate > 60; Lipase 30 U/L (8-78); Magnesium 2.2 mg/dL (1.6-2.6); Potassium 4.2 mmol/L (3.3-5.1); Sodium 142 mmol/L (135-145); Total Protein 7.8 g/dL (6.5-8.0)
[2025-07-03] MEDS: iohexoL 350 MG/ML 100 ML INFUS..BTL 85 ML IV (12:04)
[2025-07-03 14:43] VITALS: BP 152/77; PULSE 71; RESP 16; TEMP -17.7; TEMP 0; O2SAT 94
== END 2025-07-03 14:44 | disposition left against medical advice (07) ==
PROVIDERS: Physician Assistant; Emergency Provider Emergency Medicine; PCP Internal Medicine
DX: R10.32 Left lower quadrant pain (principal); R10.31 Right lower quadrant pain; L30.4 Erythema intertrigo; Z53.29 Procedure and treatment not carried out because of patient's decision for other reasons
CPT/HCPCS: 36415; 74177; 80053; 81003; 83690; 83735; 85025; 99284; 99285; Q9967

== ENCOUNTER → 2025-07-03 10:46 | Outpatient (BNV) | payer OTHER, SELFPAY | PROVIDERS: Emergency Provider Emergency Medicine; PCP Internal Medicine; Visit Provider Radiology Diagnostic Radiology | DX: N28.1 Cyst of kidney, acquired (principal); R10.30 Lower abdominal pain, unspecified | CPT/HCPCS: 74177 ==

== ENCOUNTER 2025-08-02 09:16 | Outpatient (AMB) | payer OTHER, SELFPAY ==
--- NOTE | 2025-08-02 09:41 | MHC.OFFVIS ---
Vital Signs 08/02/25 09:42 Height 5 ft 5 in Weight 159 lb BMI 26.5 Intake Visit Reasons: Onychogryphosis Intake Note: Cele is a 59 year old female who presents today for a follow up on her onychogryphosis. At her last visit her toe nails where debrided and specimens where sent out for pathology and microbiology. She was also prescribed clotrimazole 8%. Patient states everything is going well and she has seen some improvement in her toes. She report she has no concerns at this time Allergies No Known Allergies (No Known Allergies*) Allergy (Verified 08/02/25 09:43) HPI HPI Onychogryphosis: Details: 59-year-old female with past medical history of hyperlipidemia who returns for 1 month follow up of left big toenail deformity. The patient states that she applied the prescribed medication for 1 week and then stopped. She thinks she saw some improvement however she did not know she was supposed to take the medication every day. She also is complaining of a mass to the top of her left foot which has been present for approximately a year and slowly growing larger. History: She states that approximately 1 year ago, she dropped a Pallet on her toe. Ever since then, the toenails started sitting well discolored and thickened. She now has pain with the nail loosening. She has not tried any treatment so far. [facility] Medical History Fleshy skin mole Skin rash Hypovitaminosis D Mild recurrent major depression Class 1 obesity with body mass index (BMI) of 33.0 to 33.9 in adult Insomnia Dyslipidemia High cholesterol Surgical History No pertinent past surgical history Family History Mother Advanced dementia Essential hypertension Pure hypercholesterolemia Father Advanced dementia Social History Household Members: Spouse Household Members Other:: son Housing: House Alcohol intake: never Patient Tobacco Use Status: Never used Tobacco e-Cigarette/Vaping Use: Never Used Second Hand Smoke Exposure: No service: No Current occupational status: unemployed Sexual orientation: Straight/Heterosexual Gender identity: Female Cognitive needs: No Hearing needs: No Vision needs: No Female Reproductive History Menstrual Age of Menarche: 14 Review of Systems Const All systems reviewed & are unremarkable except as noted in HPI and below Physical Exam Vital Signs: BMI result Body Mass Index 26.5 Extrem Other: *Bilateral Lower Extremity Focused Exam Vascular: DP/PT 2/4, CFT less than 3 seconds all digits, temperature gradient warm to cool, no pedal edema. Derm: Thickened dystrophic left hallux nail 50% mycotic. Subungual debris. The proximal 20% of the nail appears non-mycotic/ pink hue. Neuro: Protective sensation grossly intact to bilateral lower extremities MSK: Moderate tenderness on palpation over a fluctuant mass over the dorsolateral aspect of the left foot. Well-circumscribed. No erythema or clinical signs of infection. Office Procedures AMB Ganglion Cyst Procedure: Ganglion cyst aspiration and Steroid injection Location: Dorsal left foot Medication: 2cc 1% lidocaine plain, 1cc dexamethasone? Description: The left foot was prepped using Betadine and alcohol. A 1% lidocaine injection was administered to the left foot. The mass was then aspirated and gelatinous fluid was retrieved, consistent with a ganglion cyst. A steroid injection was then administered to the area using sterile technique. The site was dressed using a band-aid and a Tristin bandage for compression. Post-procedure Instructions: The patient was instructed to apply ice to the injection site. The patient was advised to call the office if there are signs or symptoms of worsening pain, infection, or steroid flare. Aspiration and/or injection of ganglion cyst(s) any location Procedure code (CPT) selection complete Office Meds lidocaine HCl 10 mg/mL (1 %) injection solution Performing Provider: Reji Chu DPM Performing Location: [facility] Administered by: Reji Chu DPM on 08/02/25 10:27 Dose Route Admin Location Dispensed Lot Number Expiration Date [facility] [employer] 2 mL subcut 2 mL [id number] Total Dispensed Waste 2 mL 0 % ethyl chloride 100 % topical spray Performing Provider: Reji Chu DPM Performing Location: [facility] Administered by: Reji Chu DPM on 08/02/25 10:27 Dose Route Admin Location Dispensed Lot Number Expiration Date [employer] 1 appl topical 5 mL [id number] [place]. Results Reviewed Results Reviewed: 07/01/2025 left hallux pathology: Diagnosis Nail, left hallux, excision: Nail plate with degenerative changes; no fungi identified. 07/01/2025: Fungus Cult Hair/Skin/Nail Preliminary 07/07/25-1109 Fungus present on culture. Does not resemble a dermatophyte. Multiple morphologic types. Assessment & Plan Assessment & Plan (1) Onychogryposis: Code(s): L60.2 - Onychogryphosis Category: Medical Plan: Reviewed left hallux biopsy with the patient and her son Given instructions given regarding proper application of ciclopirox. Instructed the patient to use it for the next 4 months. Re-evaluate in 2 months (2) Ganglion cyst of left foot: Code(s): M67.472 - Ganglion, left ankle and foot Category: Medical Plan: Recommended aspiration which the patient consented to. The left foot mass was aspirated using standard technique. Gelatinous fluid consistent with a ganglion cyst. Injected dexamethasone into the cyst. Recommended compression. Apply Tristin bandage today. Follow up in 2 weeks Orders: Orders AMB Ganglion Cyst Injection/Aspiration Today M67.479 - Ganglion, unspecified ankle and foot Medications: New ciclopirox 8% Apply to fungal toenails daily. Remove build-up at the end of the week. 1 appl topical BEDTIME 6.6 mL 3RF fungal toe nails 4 months Coding Level of Care Code Est Pt Level 3 (30483) Diagnoses Onychogryposis L60.2 Ganglion cyst of left foot M67.472 CPT Codes Ganglion Cyst Aspiration/injection - [id number]: [id number] Aspiration and/or injection of ganglion cyst(s) any location ([id number]) Time Spent (min) 20
[2025-08-02 09:42] VITALS: BMI 26.5
== END 2025-08-02 09:57 | disposition home or self-care (01) ==
LOC: HO.HPODS 09:17
PROVIDERS: PCP Internal Medicine; Visit Provider Student in an Organized Health Care Education/Training Program
DX: L60.2 Onychogryphosis (principal); M67.472 Ganglion, left ankle and foot; M67.479 Ganglion, unspecified ankle and foot
CPT/HCPCS: 20612; 99213

== ENCOUNTER → 2025-08-02 09:16 | Outpatient (BNVA) | payer OTHER, SELFPAY | PROVIDERS: PCP Internal Medicine; Visit Provider Student in an Organized Health Care Education/Training Program | DX: M67.472 Ganglion, left ankle and foot (principal); L60.2 Onychogryphosis | CPT/HCPCS: 20612; J2003 ==

== ENCOUNTER 2025-08-23 11:25 | Outpatient (AMB) | payer OTHER, SELFPAY ==
[2025-08-23 11:50] VITALS: BMI 26.5
--- NOTE | 2025-08-23 11:50 | A.OFFVIS_ITS ---
Vital Signs 08/23/25 11:50 Height 5 ft 5 in Weight 159 lb BMI 26.5 Intake Visit Reasons: Onychogryphosis Intake Note: Cele is a 60 year old female who presents to the office today for a follow up Ganglion Cyst of her left foot. At previous visit Cyst was aspirated and injected with Dexamethasone. Pt states everything is going well and she no longer is experiencing any pain. She has no further questions or concerns Allergies No Known Allergies (No Known Allergies*) Allergy (Verified 08/23/25 11:50) HPI HPI Onychogryphosis: Details: 59-year-old female with past medical history of hyperlipidemia who returns for 1 month follow up of left big toenail deformity and left foot ganglion cyst. She no longer has pain to the cyst. She has been applying the topical antifungal medication to her left big toe daily. She also notes a recent episode where her socks got wet and she did not remove them, subsequently forming a fungal infection between her right 4th and 5th toes. She has been applying topical tinactin. History: She states that approximately 1 year ago, she dropped a Pallet on her toe. Ever since then, the toenails started sitting well discolored and thickened. She now has pain with the nail loosening. She has not tried any treatment so far. [facility] Medical History Fleshy skin mole Skin rash Hypovitaminosis D Mild recurrent major depression Class 1 obesity with body mass index (BMI) of 33.0 to 33.9 in adult Insomnia Dyslipidemia High cholesterol Surgical History No pertinent past surgical history Family History Mother Advanced dementia Essential hypertension Pure hypercholesterolemia Father Advanced dementia Social History Household Members: Spouse Household Members Other:: son Housing: House Alcohol intake: never Patient Tobacco Use Status: Never used Tobacco e-Cigarette/Vaping Use: Never Used Second Hand Smoke Exposure: No service: No Current occupational status: unemployed Sexual orientation: Straight/Heterosexual Gender identity: Female Cognitive needs: No Hearing needs: No Vision needs: No Female Reproductive History Menstrual Age of Menarche: 14 Review of Systems Const All systems reviewed & are unremarkable except as noted in HPI and below Physical Exam Vital Signs: BMI result Body Mass Index 26.5 Extrem Other: *Bilateral Lower Extremity Focused Exam Vascular: DP/PT 2/4, CFT less than 3 seconds all digits, temperature gradient warm to cool, no pedal edema. Derm: Thickened dystrophic left hallux nail 100% mycotic. Subungual debris. Right 4th interspace mild maceration Neuro: Protective sensation grossly intact to bilateral lower extremities MSK: No tenderness on palpation to remnant palpable cyst over dorsolateral aspect of the left foot. Results Reviewed Results Reviewed: 07/01/2025 left hallux pathology: Diagnosis Nail, left hallux, excision: Nail plate with degenerative changes; no fungi identified. 07/01/2025: Fungus Cult Hair/Skin/Nail Preliminary 07/07/25-1109 Fungus present on culture. Does not resemble a dermatophyte. Multiple morphologic types. Assessment & Plan Assessment & Plan (1) Onychogryposis: Code(s): L60.2 - Onychogryphosis Category: Medical Plan: * Reviewed left hallux biopsy with the patient and her son * Given instructions given regarding proper application of ciclopirox. Instructed the patient to use it for the next 4 months. * Re-evaluate in 2 months (2) Ganglion cyst of left foot: Code(s): M67.472 - Ganglion, left ankle and foot Category: Medical Plan: * The ganglion cyst is partially still there. * Recommended re-aspiration and injection if the symptoms returned. * Follow up in 2 months (3) Tinea pedis: Code(s): B35.3 - Tinea pedis Category: Medical Qualifiers: Laterality: right Qualified Code(s): B35.3 - Tinea pedis Plan: * Recommended topical anti-fungal (previously prescribed nystatin powder) otherwise topical Betadine Coding Level of Care Code Est Pt Level 3 (22007) Diagnoses Onychogryposis L60.2 Ganglion cyst of left foot M67.472 Tinea pedis of right foot B35.3 Laterality: right Time Spent (min) 20
== END 2025-08-23 12:03 | disposition home or self-care (01) ==
LOC: HO.HPODS 11:26
PROVIDERS: PCP Internal Medicine; Visit Provider Student in an Organized Health Care Education/Training Program
DX: L60.2 Onychogryphosis (principal); M67.472 Ganglion, left ankle and foot; B35.3 Tinea pedis
CPT/HCPCS: 99213